=== PATIENT | female | born 1980 | race Caucasian/White ===

== ENCOUNTER 2016-11-28 15:14 | Emergency (ER) | payer MEDICAID ==
[2016-11-28 16:44] VITALS: BP 160/117
[2016-11-28] MEDS ORDERED: Lidocaine 2% Viscous Solution 15 ML Cup PO ONE (17:52)
--- NOTE | 2016-11-28 17:58 | EDM.PDOC ---
ED HPI ENT - General Chief Complaint: ENT Problem Stated Complaint: TOOTH CRACKED WITH PAIN Time Seen by Provider: 11/28/16 17:50 Source of Information: Reports: Patient History Limitations: Reports: No limitations - History of Present Illness INITIAL COMMENTS - FREE TEXT/NARRATIVE: This 36 yo female patient reports to the ED with a 2 day history of right lower posterior dental pain due to cracked teeth. The patient has not been seen by a dentist for these symptoms. Symptom Onset Date: 11/27/16 Timing/Duration: Reports: Constant, Getting worse Severity: severe Location: Reports: mouth Quality: Reports: Ache, Sharp Improves with: Reports: None Worsens with: Reports: Breathing, Cold therapy, Eating Associated Symptoms: Reports: no other symptoms - Related Data Allergies/ADRs: Allergies Allergy/AdvReac Type Severity Reaction Status Date / Time Penicillins Allergy Swelling Verified 06/29/16 12:57 Home Meds: Home Meds ALPRAZolam [Xanax] 0.5 mg PO QID PRN 12/07/13 [History] Lisinopril [Zestril] 20 mg PO BID 12/07/13 [History] Loperamide [Imodium] 2 mg PO TID PRN 12/07/13 [History] Multivitamin [Multi-Vitamin Daily] 1 tab PO DAILY 12/07/13 [History] QUEtiapine [SEROquel] 400 mg PO BEDTIME 12/07/13 [History] Ibuprofen 400 mg PO ASDIRECTED PRN 06/29/16 [History] traMADol [Ultram] 1 tab PO TID PRN 11/28/16 [History] Past Medical History HEENT 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: None Cardiovascular 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: Hypertension Respiratory 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: None Gastrointestinal 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: None Genitourinary 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: None 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 Neurological 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: None Psychiatric 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: Anxiety, Bipolar, Depression Endocrine/Metabolic 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: None Hematologic 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: None Immunologic 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: None Oncologic (Cancer) 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: None Dermatologic 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: None - Infectious Disease History Infectious Disease 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: Chicken pox - Past Surgical History Head Surgeries/Procedures: Reports: None Musculoskeletal Surgical 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: Other (see below) Other Musculoskeletal Surgeries/Procedures:: knee surgury Social & Family History - Tobacco Use Smoking Status *Q: Current Every Day Smoker Years of Tobacco use: 15 Packs/Tins Daily: 1 Used Tobacco, but Quit: No Second Hand Smoke Exposure: No - Caffeine Use Caffeine Use: Reports: Coffee, Soda - Alcohol Use Days Per Week of Alcohol Use: 0 - Recreational Drug Use Recreational Drug Use: No Drug Use in Last 12 Months: No - Living Situation & Occupation Living situation: Reports: with family ED ROS ENT - Review of Systems Review Of Systems: ROS reveals no pertinent complaints other than HPI. ED EXAM, ENT - Physical Exam Exam: See Below Exam Limited By: No limitations General Appearance: alert, WD/WN, moderate distress Eye Exam: bilateral eye: EOMI, normal inspection, PERRL Ears: normal external exam, normal canal, hearing grossly normal, normal TMs Nose: normal inspection, normal mucousa, no blood Mouth/Throat: Dental pain, Dental tenderness, Dental trauma (right lower posterior) Head: atraumatic, normocephalic Neck: normal inspection, supple, non-tender, full range of motion Respiratory/Chest: no respiratory distress, lungs clear, normal breath sounds, no accessory muscle use, chest non-tender Cardiovascular: normal peripheral pulses, regular rate, rhythm, no edema, no gallop, no JVD, no murmur, no rub GI/Abdominal: normal bowel sounds, soft, non tender, no organomegaly (Female) Exam: Deferred Rectal (Female) Exam: Deferred Extremities: normal inspection, normal range of motion Neurological: alert, oriented, CN II-XII intact, normal cognition, normal gait, no motor/sensory deficits Psychiatric: depressed mood, flat affect Skin: Warm, Dry, Intact, Normal color, No rash Lymphatic: no adenopathy Course - Vital Signs Last Recorded V/S: Last Vital Signs Temp 36.2 C 11/28/16 16:35 Pulse 98 11/28/16 16:35 Resp 16 11/28/16 16:35 BP 160/117 H 11/28/16 16:35 Pulse Ox 98 11/28/16 16:35 - Orders/Labs/Meds Meds: Medications Discontinued Medications Generic Name Dose Route Start Last Admin Trade Name Freq PRN Reason Stop Dose Admin Lidocaine HCl 15 ml 11/28/16 17:52 Xylocaine 2% Viscous PO 11/28/16 17:53 ONETIME ONE Departure - Departure Time of Disposition: 18:00 Disposition: Home, Self-Care 01 Condition: fair Clinical Impression: Dental caries, Pain, dental Instructions: Dental Abscess, [id number], Tooth Injuries, [id number] Forms: ED Department Discharge Care Plan Goals: The patient was advised of the examination results during the visit. The patient was given some Viscous Lidocaine 2% while in the ED. The patient was discharged with a script for Viscous Lidocaine 2% #100 mL to use 5 ml on a cotton swab every 6 hours and Clindamycin (300 mg) to take 1 by mouth 3 times per day for 10 days. The patient should follow-up with a dentist for continued evaluation and further management.
== END 2016-11-28 18:12 | disposition home or self-care (01) ==
LOC: DL.ED 15:14
DX: K02.9 Dental caries, unspecified (principal); I10 Essential (primary) hypertension; F41.9 Anxiety disorder, unspecified; F32.9 Major depressive disorder, single episode, unspecified; F17.210 Nicotine dependence, cigarettes, uncomplicated; Z79.899 Other long term (current) drug therapy; Z88.0 Allergy status to penicillin
CPT/HCPCS: 99282; A9270

== ENCOUNTER 2017-06-01 19:00 | Emergency (ER) | payer MEDICAID ==
[2017-06-01 19:14] VITALS: BP 164/110
--- NOTE | 2017-06-01 20:02 | EDM.PDOC ---
ED HPI GENERAL MEDICAL PROBLEM - General Chief Complaint: Genitourinary Problem Stated Complaint: [id number] LOWER BACK PAIN PRESSURE GOING TO BATHROOM Time Seen by Provider: 06/01/17 19:30 Source of Information: Reports: Patient History Limitations: Reports: No Limitations - History of Present Illness INITIAL COMMENTS - FREE TEXT/NARRATIVE: c/o low mid back pain for one week, increased urinary frequency and felling like vaginal pressure with voiding. Chills, no known fever. LMP just completed. "Normal cycle " Hx tubal. via . No concern for STD. Onset: Gradual Lower Back Pain Score (Numeric/FACES): 8 - Related Data Allergies Allergy/AdvReac Type Severity Reaction Status Date / Time Penicillins Allergy Swelling Verified 06/01/17 19:15 Home Meds: Home Meds ALPRAZolam [Xanax] 0.5 mg PO BID PRN 12/07/13 [History] Lisinopril [Zestril] 20 mg PO BID 12/07/13 [History] Loperamide [Imodium] 2 mg PO TID PRN 12/07/13 [History] Multivitamin [Multi-Vitamin Daily] 1 tab PO DAILY 12/07/13 [History] QUEtiapine [SEROquel] 400 mg PO BEDTIME 12/07/13 [History] Ibuprofen 400 mg PO ASDIRECTED PRN 06/29/16 [History] traMADol [Ultram] 1 tab PO TID PRN 11/28/16 [History] Past Medical History HEENT 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: None Cardiovascular 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: Hypertension Respiratory 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: None Gastrointestinal 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: None Genitourinary 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: None 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 Neurological 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: None Psychiatric 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: Anxiety, Bipolar, Depression Endocrine/Metabolic 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: None Hematologic 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: None Immunologic 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: None Oncologic (Cancer) 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: None Dermatologic 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: None - Infectious Disease History Infectious Disease 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: Chicken Pox - Past Surgical History Head Surgeries/Procedures: Reports: None Social & Family History - Tobacco Use Smoking Status *Q: Current Every Day Smoker Years of Tobacco use: 20 Packs/Tins Daily: 0.5 Used Tobacco, but Quit: No Second Hand Smoke Exposure: Yes - Caffeine Use Caffeine Use: Reports: Coffee, Soda - Alcohol Use Days Per Week of Alcohol Use: 0 - Recreational Drug Use Recreational Drug Use: No Drug Use in Last 12 Months: No - Living Situation & Occupation Living situation: Reports: with Family ED ROS GENERAL - Review of Systems Review Of Systems: ROS reveals no pertinent complaints other than HPI. ED EXAM, RENAL/ - Physical Exam Exam: See Below Exam Limited By: No Limitations General Appearance: Alert, Mild Distress Eye Exam: Bilateral Eye: Abnormal EOM, EOMI Ears: Normal External Exam Nose: Normal Inspection Throat/Mouth: Normal Inspection Head: Atraumatic, Normocephalic Respiratory/Chest: No Respiratory Distress, Lungs Clear, Normal Breath Sounds Cardiovascular: Regular Rate, Rhythm GI/Abdominal: Normal Bowel Sounds, Soft, Tender (suprapubic) (Female) Exam: Normal External Exam, Normal Speculum Exam, Other (mild tenderness bimanual greater right adenaxal. No prolapse noted. ). No: Vaginal Bleeding, Vaginal Discharge, Vaginal Lesions Back Exam: Normal Inspection, Full Range of Motion Extremities: Normal Inspection, Normal Range of Motion Neurological: Alert, Oriented Psychiatric: Normal Mood Skin Exam: Warm, Dry, Intact, Normal Color Course - Vital Signs Last Recorded V/S: Last Vital Signs Temp 98.1 F 06/01/17 19:10 Pulse 88 06/01/17 19:10 Resp 18 06/01/17 19:10 BP 164/110 H 06/01/17 19:10 Pulse Ox 100 06/01/17 19:10 - Orders/Labs/Meds Labs: Laboratory Tests 06/01/17 06/01/17 06/01/17 Range/Units 19:20 20:26 20:26 WBC 7.8 (5.0-10.0) 10^3/uL RBC 4.70 (4.2-5.4) 10^6/uL Hgb 14.5 (12.0-16.0) g/dL Hct 43.6 (37.0-47.0) % MCV 92.8 (80-100) fL MCH 30.9 (27.0-34.0) pg MCHC 33.3 (33.0-35.0) g/dL Plt Count 204 (150-450) 10^3/uL Neut % (Auto) 71.4 (42.2-75.2) % Lymph % (Auto) 21.5 (20.5-50.1) % [place] % (Auto) 6.6 (2-8) % Eos % (Auto) 0.4 L (1.0-3.0) % Baso % (Auto) 0.1 (0.0-1.0) % Sodium 141 (135-145) mmol/L Potassium 4.0 (3.6-5.0) mmol/L Chloride 102 (101-111) mmol/L Carbon Dioxide 26.0 (21.0-31.0) mmol/L Anion Gap 17.0 BUN 9 (7-18) mg/dL Creatinine 0.8 (0.6-1.3) mg/dL Est Cr Clr Drug Dosing 109.70 mL/min Estimated GFR (MDRD) > 60 BUN/Creatinine Ratio 11.25 Glucose 100 (74-105) mg/dL Calcium 9.8 (8.4-10.2) mg/dl Total Bilirubin 0.6 (0.2-1.0) mg/dL AST 30 (10-42) IU/L ALT 37 (10-60) IU/L Alkaline Phosphatase 75 (42-121) IU/L Total Protein 8.0 (6.7-8.2) g/dl Albumin 4.4 (3.2-5.5) g/dl Globulin 3.6 Albumin/Globulin Ratio 1.22 Urine Color Yellow (YELLOW) Urine Appearance Cloudy (CLEAR) Urine pH 6.0 (5.0-9.0) Ur Specific [place] 1.015 (1.005-1.030) Urine Protein Negative (NEGATIVE) Urine Glucose (UA) Negative (NEGATIVE) Urine Ketones Negative (NEGATIVE) Urine Occult Blood Trace-intact H (NEGATIVE) Urine Nitrite Negative (NEGATIVE) Urine Bilirubin Negative (NEGATIVE) Urine Urobilinogen 0.2 (0.2-1.0) mg/dL Ur Leukocyte Esterase Negative (NEGATIVE) Urine RBC 5-10 H /HPF Urine WBC 0-5 (0-5/HPF) /HPF Ur Epithelial Cells Few /HPF Urine Bacteria Few (0-FEW/HPF) /HPF Urine Mucus Few H /LPF Meds: Medications Discontinued Medications Generic Name Dose Route Start Last Admin Trade Name Freq PRN Reason Stop Dose Admin Ketorolac Tromethamine 30 mg 06/01/17 21:01 06/01/17 21:06 Toradol IM 06/01/17 21:02 30 mg ONETIME ONE Administration Orphenadrine Citrate 60 mg 06/01/17 21:02 06/01/17 21:07 Norflex IM 06/01/17 21:03 60 mg ONETIME ONE Administration Departure - Departure Time of Disposition: 21:49 Disposition: Home, Self-Care 01 Condition: Fair Clinical Impression: Pelvic pressure in female Back pain Qualifiers: Back pain location: low back pain Chronicity: unspecified Back pain laterality : midline Sciatica presence: without sciatica Qualified Code(s): M54.5 - Low back pain - Discharge Information Instructions: Pelvic Pain, Female, [id number] Forms: ED Department Discharge Additional Instructions: follow up in clinic tramadol as previously ordered, may take withone acetaminophen 325mg rest
[2017-06-01 20:52] LABS: CHLORIDE,CL 102 mmol/L (101-111); SODIUM,NA 141 mmol/L (135-145)
[2017-06-01] MEDS ORDERED: Ketorolac 30 MG/ML SDV IM ONE (21:01)
== END 2017-06-01 22:00 | disposition home or self-care (01) ==
LOC: DL.ED 19:00
DX: M54.5 Low back pain (principal); R10.2 Pelvic and perineal pain; I10 Essential (primary) hypertension; F17.210 Nicotine dependence, cigarettes, uncomplicated; Z88.0 Allergy status to penicillin
CPT/HCPCS: 36415; 80053; 81001; 85025; 87210; 96372; 99283; J1885; J2360

== ENCOUNTER 2017-08-24 16:09 | Emergency (ER) | payer MEDICAID ==
[2017-08-24 16:27] VITALS: BP 184/115
--- NOTE | 2017-08-24 17:01 | EDM.PDOC ---
ED HPI GENERAL MEDICAL PROBLEM - General Chief Complaint: Abdominal Pain Stated Complaint: POST SURG, PAIN Time Seen by Provider: 08/24/17 16:50 Source of Information: Reports: Patient History Limitations: Reports: No Limitations - History of Present Illness INITIAL COMMENTS - FREE TEXT/NARRATIVE: This 37 yo female patient reports to the ED with lower abdominal pain and vaginal discharge (blood and whitish discharge). The patient reports that she had a partial 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 in the end of July and has been experiencing increased discomfort since that time. The patient reports she attempted to speak to the surgeon (Dr. Ramírez), but he is out of the office. The patient reports she attempted to get an appointment in the [facility], but spoke with numerous nurses and was not able to get into the clinic. The patient rates her current pain at a 7/10 and describes her pain as pressure in her lower abdomen. The patient reports she has had regular bowel movements. Duration: Week(s):, Constant, Getting Worse Location: Reports: Abdomen Quality: Reports: Ache, Pressure Severity: Severe Improves with: Reports: None Worsens with: Reports: None Associated Symptoms: Reports: Other (vaginal discharge) Pelvic Pain Score (Numeric/FACES): 7 - Related Data Allergies Allergy/AdvReac Type Severity Reaction Status Date / Time metronidazole Allergy Cannot Verified 08/24/17 16:53 Remember Penicillins Allergy Swelling Verified 08/24/17 16:48 Home Meds: Home Meds ALPRAZolam [Xanax] 0.5 mg PO BID PRN 12/07/13 [History] Lisinopril [Zestril] 20 mg PO BID 12/07/13 [History] Loperamide [Imodium] 2 mg PO TID PRN 12/07/13 [History] Multivitamin [Multi-Vitamin Daily] 1 tab PO DAILY 12/07/13 [History] QUEtiapine [SEROquel] 400 mg PO BEDTIME 12/07/13 [History] Ibuprofen 400 mg PO ASDIRECTED PRN 06/29/16 [History] traMADol [Ultram] 1 tab PO TID PRN 11/28/16 [History] Past Medical History HEENT 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: None Cardiovascular 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: Hypertension Respiratory 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: None Gastrointestinal 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: None Genitourinary 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: None 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 Other OB/BYN History: 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 Neurological 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: None Psychiatric 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: Anxiety, Bipolar, Depression Endocrine/Metabolic 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: None Hematologic 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: None Immunologic 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: None Oncologic (Cancer) 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: None Dermatologic 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: None - Infectious Disease History Infectious Disease 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: Chicken Pox - Past Surgical History Head Surgeries/Procedures: Reports: None GI Surgical 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: Cholecystectomy Musculoskeletal Surgical 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: Other (See Below) Social & Family History - Family History Family Medical History: Noncontributory - Tobacco Use Smoking Status *Q: Current Every Day Smoker Years of Tobacco use: 19 Packs/Tins Daily: 1 Used Tobacco, but Quit: No Second Hand Smoke Exposure: Yes - Caffeine Use Caffeine Use: Reports: Coffee - Alcohol Use Days Per Week of Alcohol Use: 0 - Recreational Drug Use Recreational Drug Use: No Drug Use in Last 12 Months: No - Living Situation & Occupation Living situation: Reports: with Family ED ROS GENERAL - Review of Systems Review Of Systems: ROS reveals no pertinent complaints other than HPI. ED EXAM, GI/ABD - Physical Exam Exam: See Below Exam Limited By: No Limitations General Appearance: Alert, WD/WN, Moderate Distress Eyes: Bilateral: Normal Appearance, EOMI Ears: Normal External Exam, Normal Canal, Hearing Grossly Normal, Normal TMs Nose: Normal Inspection, Normal Mucosa, No Blood Throat/Mouth: Normal Inspection, Normal Lips, Normal Teeth, Normal Gums, Normal Oropharynx, Normal Voice, No Airway Compromise Head: Atraumatic, Normocephalic Neck: Normal Inspection, Supple, Non-Tender, Full Range of Motion Respiratory/Chest: No Respiratory Distress, Lungs Clear, Normal Breath Sounds, No Accessory Muscle Use, Chest Non-Tender Cardiovascular: Normal Peripheral Pulses, Regular Rate, Rhythm, No Edema, No Gallop, No JVD, No Murmur, No Rub GI/Abdominal Exam: Normal Bowel Sounds, No Abnormal Bruit, No Mass, Pelvis Stable, Distended, Tender (diffuse tenderness with increased tenderness over the lower abdomen) (Female) Exam: Normal External Exam, Adnexal Tenderness, Cervical Discharge ( mild, blood tinged, whitish discharge), Cervix Motion Tenderness (generalized tenderness (post 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)), Vaginal Discharge Rectal (Female) Exam: Deferred Back Exam: Normal Inspection, Full Range of Motion, NT Extremities: Normal Inspection, Normal Range of Motion, Non-Tender, Normal Capillary Refill, No Pedal Edema Neurological: Alert, Oriented, CN II-XII Intact, Normal Cognition, Normal Gait, Normal Reflexes, No Motor/Sensory Deficits Psychiatric: Normal Affect, Normal Mood Skin Exam: Warm, Dry, Intact, Normal Color, No Rash Lymphatic: No Adenopathy Course - Vital Signs Last Recorded V/S: Last Vital Signs Temp 36.7 C 08/24/17 16:26 Pulse 94 08/24/17 16:26 Resp 20 08/24/17 16:26 BP 184/115 H 08/24/17 16:26 Pulse Ox 100 08/24/17 16:26 - Orders/Labs/Meds Orders: Active Orders 24 hr Category Date Time Status CHLAMYDIA AND GONORRHEA BY [facility] Urgent Lab 08/24/17 18:26 Received Labs: Laboratory Tests 08/24/17 08/24/17 08/24/17 Range/Units 16:15 17:00 17:00 WBC 5.4 (5.0-10.0) 10^3/uL RBC 4.23 (4.2-5.4) 10^6/uL Hgb 12.7 D (12.0-16.0) g/dL Hct 38.6 (37.0-47.0) % MCV 91.3 (80-100) fL MCH 30.0 (27.0-34.0) pg MCHC 32.9 L (33.0-35.0) g/dL Plt Count 204 (150-450) 10^3/uL Neut % (Auto) 52.1 (42.2-75.2) % Lymph % (Auto) 35.2 (20.5-50.1) % [place] % (Auto) 11.0 H (2-8) % Eos % (Auto) 1.5 (1.0-3.0) % Baso % (Auto) 0.2 (0.0-1.0) % Sodium 138 (135-145) mmol/L Potassium 3.8 (3.6-5.0) mmol/L Chloride 105 (101-111) mmol/L Carbon Dioxide 26.0 (21.0-31.0) mmol/L Anion Gap 10.8 BUN 15 (7-18) mg/dL Creatinine 0.9 (0.6-1.3) mg/dL Est Cr Clr Drug Dosing 97.51 mL/min Estimated GFR (MDRD) > 60 BUN/Creatinine Ratio 16.66 Glucose 93 (74-105) mg/dL Calcium 9.1 (8.4-10.2) mg/dl Total Bilirubin 0.2 (0.2-1.0) mg/dL AST 28 (10-42) IU/L ALT 33 (10-60) IU/L Alkaline Phosphatase 70 (42-121) IU/L Total Protein 7.1 (6.7-8.2) g/dl Albumin 3.7 (3.2-5.5) g/dl Globulin 3.4 Albumin/Globulin Ratio 1.09 Amylase 51 (28-100) U/L Lipase 27 (22-51) U/L Urine Color Yellow (YELLOW) Urine Appearance Cloudy (CLEAR) Urine pH 7.0 (5.0-9.0) Ur Specific [place] 1.025 (1.005-1.030) Urine Protein Negative (NEGATIVE) Urine Glucose (UA) Negative (NEGATIVE) Urine Ketones Negative (NEGATIVE) Urine Occult Blood Moderate H (NEGATIVE) Urine Nitrite Negative (NEGATIVE) Urine Bilirubin Negative (NEGATIVE) Urine Urobilinogen 0.2 (0.2-1.0) mg/dL Ur Leukocyte Esterase Small H (NEGATIVE) Urine RBC 0-5 /HPF Urine WBC 0-5 (0-5/HPF) /HPF Ur Epithelial Cells Few /HPF Urine Bacteria Few (0-FEW/HPF) /HPF Urine Mucus Few H /LPF Meds: Medications Discontinued Medications Generic Name Dose Route Start Last Admin Trade Name Freq PRN Reason Stop Dose Admin Iopamidol 100 ml 08/24/17 17:30 08/24/17 18:04 Isovue-300 (61%) IVPUSH 08/24/17 17:31 100 ml ONETIME ONE Administration Departure - Departure Time of Disposition: 18:49 Disposition: Home, Self-Care 01 Condition: Fair Clinical Impression: Bacterial vaginitis - Discharge Information Instructions: Bacterial Vaginosis, [id number] Forms: ED Department Discharge Care Plan Goals: The patient was advised of the examination, lab and CT results during the visit. The patient was discharged with a script for Clindamycin (300 mg) #14 to take 1 by mouth 2 times per day for 7 days. The patient should follow-up with her primary care facility in about 1 week. If the patient has any additional symptoms or concerns, the patient should follow-up with her primary care facility or return to the ED. - My Orders Last 24 Hours: My Active Orders 08/24/17 18:26 CHLAMYDIA AND GONORRHEA [facility] Urgent - Assessment/Plan Last 24 Hours: My Active Orders 08/24/17 18:26 [facility] Urgent
[2017-08-24 17:23] LABS: CHLORIDE,CL 105 mmol/L (101-111); SODIUM,NA 138 mmol/L (135-145)
[2017-08-24] MEDS ORDERED: Iopamidol 612 MG/ML 100 ML Bottle IVPUSH ONE (17:30)
== END 2017-08-24 18:53 | disposition home or self-care (01) ==
LOC: DL.ED 16:09
DX: N76.0 Acute vaginitis (principal); K59.00 Constipation, unspecified; I10 Essential (primary) hypertension; F31.9 Bipolar disorder, unspecified; F17.210 Nicotine dependence, cigarettes, uncomplicated; Z79.899 Other long term (current) drug therapy; Z88.0 Allergy status to penicillin; Z88.1 Allergy status to other antibiotic agents; Z90.710 Acquired absence of both cervix and uterus
CPT/HCPCS: 36415; 74177; 80053; 81001; 82150; 83690; 85025; 87210; 87491; 87591; 99284; Q9967

== ENCOUNTER 2017-10-30 21:29 | Emergency (ER) | payer MEDICAID ==
[2017-10-30] MEDS ORDERED: Sodium Chloride 0.9% 10 ML Syringe FLUSH PRN (21:44)
[2017-10-30 21:56] VITALS: BP 162/113
[2017-10-30 22:13] LABS: CHLORIDE,CL 103 mmol/L (101-111); SODIUM,NA 136 mmol/L (135-145)
[2017-10-30] MEDS ORDERED: Sodium Chloride 0.9% 1,000 ML IV ONE (22:24)
[2017-10-30] MEDS ORDERED: Morphine 2 MG/ML Syringe IVPUSH ONE (22:39)
[2017-10-30] MEDS ORDERED: Ondansetron 4 MG/2 ML SDV IV ONE (22:39)
--- NOTE | 2017-10-30 23:02 | EDM.PDOC ---
ED HPI GENERAL MEDICAL PROBLEM - General Chief Complaint: Abdominal Pain Stated Complaint: abdominal pain [id number] Time Seen by Provider: 10/30/17 21:52 Source of Information: Reports: Patient, RN, RN Notes Reviewed History Limitations: Reports: No Limitations - History of Present Illness INITIAL COMMENTS - FREE TEXT/NARRATIVE: Pt presents to the ER with c/o right lower quadrant pain that radiates to the left lower quadrant. She states the pain began at 0130 Thursday morning. She states the pain has been constant and getting worse. She states she had severe pain with intercourse last evening. Pt states she has had a low grade fever, but unsure of what the temperature was, and chills. Denies N/V/D. Pt states she had a 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 approx. 2 months ago, still has her appendix, but not her gallbladder. Onset: Sudden Onset Date: 10/29/17 Onset Time: 01:30 Duration: Constant Location: Reports: Abdomen Quality: Reports: Sharp, Stabbing Severity: Moderate Improves with: Reports: None Worsens with: Reports: None Associated Symptoms: Reports: No Other Symptoms Treatments CULINARY INTERN: Reports: NSAIDS Right Lower Abdomen Pain Score (Numeric/FACES): 8 - Related Data Allergies Allergy/AdvReac Type Severity Reaction Status Date / Time metronidazole Allergy Cannot Verified 10/30/17 21:39 Remember Penicillins Allergy Swelling Verified 10/30/17 21:39 Home Meds: Home Meds ALPRAZolam [Xanax] 0.5 mg PO BID PRN 12/07/13 [History] Lisinopril [Zestril] 20 mg PO BID 12/07/13 [History] Loperamide [Imodium] 2 mg PO TID PRN 12/07/13 [History] Multivitamin [Multi-Vitamin Daily] 1 tab PO DAILY 12/07/13 [History] QUEtiapine [SEROquel] 400 mg PO BEDTIME 12/07/13 [History] Ibuprofen 400 mg PO ASDIRECTED PRN 06/29/16 [History] traMADol [Ultram] 1 tab PO TID PRN 11/28/16 [History] Past Medical History HEENT 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: None Cardiovascular 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: Hypertension Respiratory 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: None Gastrointestinal 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: None Genitourinary 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: None 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: 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 Other OB/BYN History: 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 Neurological 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: None Psychiatric 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: Anxiety, Bipolar, Depression Endocrine/Metabolic 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: None Hematologic 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: None Immunologic 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: None Oncologic (Cancer) 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: None Dermatologic 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: None - Infectious Disease History Infectious Disease 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: Chicken Pox - Past Surgical History Head Surgeries/Procedures: Reports: None GI Surgical 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: Cholecystectomy Musculoskeletal Surgical 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: Other (See Below) Social & Family History - Family History Family Medical History: Noncontributory - Tobacco Use Smoking Status *Q: Current Every Day Smoker Years of Tobacco use: 21 Packs/Tins Daily: 0.5 Used Tobacco, but Quit: No Second Hand Smoke Exposure: Yes - Caffeine Use Caffeine Use: Reports: Coffee, Soda - Alcohol Use Days Per Week of Alcohol Use: 0 - Recreational Drug Use Recreational Drug Use: No Drug Use in Last 12 Months: No - Living Situation & Occupation Living situation: Reports: with Family ED ROS GENERAL - Review of Systems Review Of Systems: ROS reveals no pertinent complaints other than HPI. ED EXAM, GI/ABD - Physical Exam Exam: See Below Exam Limited By: No Limitations General Appearance: Alert, WD/WN Eyes: Bilateral: Normal Appearance Ears: Normal External Exam, Hearing Grossly Normal Nose: Normal Inspection Throat/Mouth: Normal Inspection, Normal Voice, No Airway Compromise Head: Atraumatic, Normocephalic Neck: Normal Inspection, Supple, Non-Tender, Full Range of Motion Respiratory/Chest: No Respiratory Distress, Lungs Clear, Normal Breath Sounds, No Accessory Muscle Use, Chest Non-Tender Cardiovascular: Normal Peripheral Pulses, Regular Rate, Rhythm, No Edema, No Gallop, No JVD, No Murmur, No Rub GI/Abdominal Exam: Normal Bowel Sounds, Soft, No Organomegaly, No Distention, Tender (right and left lower quadrants) (Female) Exam: Deferred Rectal (Female) Exam: Deferred Back Exam: Normal Inspection, Full Range of Motion Extremities: Normal Inspection, Normal Range of Motion, Non-Tender, Normal Capillary Refill, No Pedal Edema Neurological: Alert, Oriented, CN II-XII Intact, Normal Cognition, Normal Gait, Normal Reflexes, No Motor/Sensory Deficits Psychiatric: Normal Affect, Normal Mood Skin Exam: Warm, Dry, Intact, Normal Color, No Rash Lymphatic: No Adenopathy Course - Vital Signs Last Recorded V/S: Last Vital Signs Temp 100.1 F 10/30/17 21:54 Pulse 114 H 10/30/17 21:54 Resp 20 10/30/17 21:54 BP 162/113 H 10/30/17 21:54 Pulse Ox 100 10/30/17 21:54 - Orders/Labs/Meds Orders: Active Orders 24 hr Category Date Time Status Peripheral IV Care [RC] . DIRECTED Care 10/30/17 21:44 Active CULTURE BLOOD [BC] Stat Lab 10/30/17 21:50 Received Blood Culture x2 Reflex Set [OM.PC] Stat Oth 10/30/17 21:44 Ordered Peripheral IV Insertion Adult [OM.PC] Stat Oth 10/30/17 21:44 Ordered Labs: Laboratory Tests 10/30/17 10/30/17 10/30/17 Range/Units 21:50 21:50 21:50 WBC 8.6 (5.0-10.0) 10^3/uL RBC 4.64 (4.2-5.4) 10^6/uL Hgb 14.2 D (12.0-16.0) g/dL Hct 41.9 (37.0-47.0) % MCV 90.3 (80-100) fL MCH 30.6 (27.0-34.0) pg MCHC 33.9 (33.0-35.0) g/dL Plt Count 171 (150-450) 10^3/uL Neut % (Auto) 70.3 (42.2-75.2) % Lymph % (Auto) 19.7 L (20.5-50.1) % Isabella % (Auto) 9.3 H (2-8) % Eos % (Auto) 0.6 L (1.0-3.0) % Baso % (Auto) 0.1 (0.0-1.0) % Sodium 136 (135-145) mmol/L Potassium 3.0 L (3.6-5.0) mmol/L Chloride 103 (101-111) mmol/L Carbon Dioxide 23.0 (21.0-31.0) mmol/L Anion Gap 13.0 BUN 10 (7-18) mg/dL Creatinine 0.7 (0.6-1.3) mg/dL Est Cr Clr Drug Dosing 125.38 mL/min Estimated GFR (MDRD) > 60 BUN/Creatinine Ratio 14.28 Glucose 97 (74-105) mg/dL Lactic Acid 0.8 (0.5-2.2) mmol/L Calcium 9.0 (8.4-10.2) mg/dl Total Bilirubin 1.1 H (0.2-1.0) mg/dL AST 26 (10-42) IU/L ALT 37 (10-60) IU/L Alkaline Phosphatase 71 (42-121) IU/L Total Protein 8.1 (6.7-8.2) g/dl Albumin 4.2 (3.2-5.5) g/dl Globulin 3.9 Albumin/Globulin Ratio 1.08 Urine Color (YELLOW) Urine Appearance (CLEAR) Urine pH (5.0-9.0) Ur Specific [place] (1.005-1.030) Urine Protein (NEGATIVE) Urine Glucose (UA) (NEGATIVE) Urine Ketones (NEGATIVE) Urine Occult Blood (NEGATIVE) Urine Nitrite (NEGATIVE) Urine Bilirubin (NEGATIVE) Urine Urobilinogen (0.2-1.0) mg/dL Ur Leukocyte Esterase (NEGATIVE) Urine RBC /HPF Urine WBC (0-5/HPF) /HPF Ur Epithelial Cells /HPF Urine Bacteria (0-FEW/HPF) /HPF Urine Mucus /LPF Urine Other Urine Yeast (0/HPF) /HPF Urine Opiates Screen (NEGATIVE) Ur Oxycodone Screen (NEGATIVE) Urine Methadone Screen (NEGATIVE) Ur Barbiturates Screen (NEGATIVE) U Tricyclic Antidepress (NEGATIVE) Ur Phencyclidine Scrn (NEGATIVE) Ur Amphetamine Screen (NEGATIVE) U Methamphetamines Scrn (NEGATIVE) Urine MDMA Screen (NEGATIVE) U Benzodiazepines Scrn (NEGATIVE) Urine Cocaine Screen (NEGATIVE) U Marijuana (THC) Screen (NEGATIVE) 10/30/17 10/30/17 Range/Units 22:56 22:56 WBC (5.0-10.0) 10^3/uL RBC (4.2-5.4) 10^6/uL Hgb (12.0-16.0) g/dL Hct (37.0-47.0) % MCV (80-100) fL MCH (27.0-34.0) pg MCHC (33.0-35.0) g/dL Plt Count (150-450) 10^3/uL Neut % (Auto) (42.2-75.2) % Lymph % (Auto) (20.5-50.1) % Isabella % (Auto) (2-8) % Eos % (Auto) (1.0-3.0) % Baso % (Auto) (0.0-1.0) % Sodium (135-145) mmol/L Potassium (3.6-5.0) mmol/L Chloride (101-111) mmol/L Carbon Dioxide (21.0-31.0) mmol/L Anion Gap BUN (7-18) mg/dL Creatinine (0.6-1.3) mg/dL Est Cr Clr Drug Dosing mL/min Estimated GFR (MDRD) BUN/Creatinine Ratio Glucose (74-105) mg/dL Lactic Acid (0.5-2.2) mmol/L Calcium (8.4-10.2) mg/dl Total Bilirubin (0.2-1.0) mg/dL AST (10-42) IU/L ALT (10-60) IU/L Alkaline Phosphatase (42-121) IU/L Total Protein (6.7-8.2) g/dl Albumin (3.2-5.5) g/dl Globulin Albumin/Globulin Ratio Urine Color Dark yellow (YELLOW) Urine Appearance Slightly cloudy (CLEAR) Urine pH 6.0 (5.0-9.0) Ur Specific [place] 1.020 (1.005-1.030) Urine Protein Trace H (NEGATIVE) Urine Glucose (UA) Negative (NEGATIVE) Urine Ketones 80 H (NEGATIVE) Urine Occult Blood Trace-lysed H (NEGATIVE) Urine Nitrite Negative (NEGATIVE) Urine Bilirubin Small H (NEGATIVE) Urine Urobilinogen 0.2 (0.2-1.0) mg/dL Ur Leukocyte Esterase Negative (NEGATIVE) Urine RBC 5-10 H /HPF Urine WBC 0-5 (0-5/HPF) /HPF Ur Epithelial Cells Moderate H /HPF Urine Bacteria Moderate H (0-FEW/HPF) /HPF Urine Mucus Many H /LPF Urine Other See note Urine Yeast Few H (0/HPF) /HPF Urine Opiates Screen Positive H (NEGATIVE) Ur Oxycodone Screen Positive H (NEGATIVE) Urine Methadone Screen Negative (NEGATIVE) Ur Barbiturates Screen Negative (NEGATIVE) U Tricyclic Antidepress Negative (NEGATIVE) Ur Phencyclidine Scrn Negative (NEGATIVE) Ur Amphetamine Screen Positive H (NEGATIVE) U Methamphetamines Scrn Positive H (NEGATIVE) Urine MDMA Screen Negative (NEGATIVE) U Benzodiazepines Scrn Negative (NEGATIVE) Urine Cocaine Screen Negative (NEGATIVE) U Marijuana (THC) Screen Negative (NEGATIVE) Meds: Medications Discontinued Medications Generic Name Dose Route Start Last Admin Trade Name Freq PRN Reason Stop Dose Admin Clindamycin HCl 300 mg 10/30/17 23:34 10/30/17 23:51 Cleocin PO 10/30/17 23:35 300 mg ONETIME ONE Administration Hydromorphone HCl 1 mg 10/31/17 01:23 10/31/17 01:27 Dilaudid IVPUSH 10/31/17 01:24 1 mg ONETIME ONE Administration Sodium Chloride 1,000 mls @ 999 mls/hr 10/30/17 22:24 10/30/17 22:32 Normal Saline IV 10/30/17 23:24 999 mls/hr .BOLUS ONE Administration Iopamidol 100 ml 10/31/17 00:01 10/31/17 00:30 Isovue-300 (61%) IVPUSH 10/31/17 00:02 100 ml ONETIME ONE Administration Lorazepam 1 mg 10/31/17 01:32 10/31/17 01:37 Ativan IVPUSH 10/31/17 01:33 1 mg ONETIME ONE Administration Morphine Sulfate 2 mg 10/30/17 22:39 10/30/17 22:50 Morphine IVPUSH 10/30/17 22:40 2 mg ONETIME ONE Administration Ondansetron HCl 4 mg 10/30/17 22:39 10/30/17 22:50 Zofran IV 10/30/17 22:40 4 mg ONETIME ONE Administration Sodium Chloride 10 ml 10/30/17 21:44 10/30/17 22:33 Saline Flush FLUSH 10 ml ASDIRECTED PRN Administration Keep Vein Open - Radiology Interpretation Free Text/Narrative:: Abdomen/Pelvis CT with contrast: IMPRESSION: 1. Status-post 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. New thick-walled 6.8 cm multicystic right adnexal/ ovarian lesion with diffuse wall enhancement and pelvic mild inflammatory changes and small free fluid. Diffuse thickening of the right broad ligament. The findings likely represent represent a tubo-ovarian abscess or a large hemorrhagic cysts but superimposed infection. Surgical consultation is recommended. 2. Diffuse segmental thickening of the rectosigmoid junction adjacent to the cystic right tubo-ovarian mass, suspicious for regional colitis. Followup is recommended after treatment to rule out the possibility of malignancy. 3. Right ovarian vein thrombosis. 4. Small bowel ileus in the pelvis. Colonic constipation. See Rad report Departure - Departure Time of Disposition: 23:35 Disposition: DC/Tfer to [facility] 02 Condition: Fair Clinical Impression: Bacterial vaginitis, Candidiasis, Lesion of ovary Abdominal pain Qualifiers: Abdominal location: lower abdomen, unspecified Qualified Code(s): R10.30 - Lower abdominal pain, unspecified - Discharge Information Referrals: Joao Crystal MD [Primary Care Provider] - Forms: ED Department Discharge, Interfacility Transfer EMTALA Additional Instructions: RX: Clindamycin, Fluconazole Drink plenty of fluids Follow up with your primary care facility next week Tylenol and/or ibuprofen as directed for pain/fever - My Orders Last 24 Hours: My Active Orders 10/30/17 21:44 Peripheral IV Care [RC] . DIRECTED Blood Culture x2 Reflex Set [OM.PC] Stat Peripheral IV Insertion Adult [OM.PC] Stat 10/30/17 21:50 CULTURE BLOOD [BC] Stat - Assessment/Plan Last 24 Hours: My Active Orders 10/30/17 21:44 Peripheral IV Care [RC] . DIRECTED Blood Culture x2 Reflex Set [OM.PC] Stat Peripheral IV Insertion Adult [OM.PC] Stat 10/30/17 21:50 CULTURE BLOOD [BC] Stat
[2017-10-30] MEDS ORDERED: Clindamycin HCl 150 MG Cap PO ONE (23:34)
[2017-10-31] MEDS ORDERED: Iopamidol 612 MG/ML 100 ML Bottle IVPUSH ONE (00:01)
[2017-10-31] MEDS ORDERED: HYDROmorphone 1 MG/ML Syringe IVPUSH ONE (01:23)
[2017-10-31] MEDS ORDERED: LORazepam 2 MG/ML Syringe IVPUSH ONE (01:32)
== END 2017-10-31 02:22 ==
LOC: DL.ED 21:29
DX: N76.0 Acute vaginitis (principal); B37.3 Candidiasis of vulva and vagina; N83.8 Other noninflammatory disorders of ovary, fallopian tube and broad ligament; K56.7 Ileus, unspecified; K59.00 Constipation, unspecified; I10 Essential (primary) hypertension; F31.9 Bipolar disorder, unspecified; F17.210 Nicotine dependence, cigarettes, uncomplicated; Z88.0 Allergy status to penicillin; Z88.1 Allergy status to other antibiotic agents
CPT/HCPCS: 36415; 74177; 80053; 80305; 81001; 83605; 85025; 87040; 96365; 96375; 99285; A9270; J1170; J2060; J2270; J2405; J7030; J7050; Q9967

== ENCOUNTER 2017-11-10 12:10 | Emergency (ER) | payer MEDICAID ==
[2017-11-10 14:53] LABS: CHLORIDE,CL 105 mmol/L (101-111); SODIUM,NA 140 mmol/L (135-145)
[2017-11-10] MEDS ORDERED: HYDROmorphone 1 MG/ML Syringe IVPUSH ONE ×2 (15:04→18:01)
[2017-11-10] MEDS ORDERED: Iopamidol 612 MG/ML 100 ML Bottle IVPUSH ONE (16:05)
--- NOTE | 2017-11-10 16:16 | US ---
Clinical history: 37-year-old female who presents emergency department with severe right pelvic pain. Patient has had a 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 and was reported on recent CT scan pelvis 31 October 2017 to have "t hick walled 6.8 cm multicystic right adnexal (ovarian ?) lesion, pelvic inflammatory changes and smal l fluid". Tubo-ovarian abscess? Hemorrhagic cyst? Reevaluate please this patient also reported to [facility] "right ovarian thrombosis and suspicion of regional colitis" end of October 2017 exam. Interpretation: 1. Surgically absent uterus. 2. Prominent right ovary (4.0 cm L x 2.6 cm W x 3.0 cm AP diameter) with typical small physiologic cy sts in the periphery and trace of fluid in the adjacent cul-de-sac. Cyst rupture? 3. Largest right ovarian cyst measures 9 x 17 mm. Note: No arterial blood flow demonstrated to this ovary (real-time exam by lab associate) and must cons ider the possibility of torsion. Clinical? Suspicious but repeat CT with contrast may be helpful and is suggested. 4. Left ovary not appreciated on today's exam. Surgically absent? 5. No extraovarian adnexal mass lesion (abscess, endometrioma, or neoplasm) identified. CONCLUSION: Suspicious blood flow dynamics solitary large ovary, RLQ. Torsion? Surgically absent uter us.
[2017-11-10] MEDS ORDERED: LORazepam 2 MG/ML Syringe IVPUSH ONE (17:11)
--- NOTE | 2017-11-10 17:34 | EDM.PDOC ---
ED HPI GENERAL MEDICAL PROBLEM - General Chief Complaint: Abdominal Pain Stated Complaint: [id number] LOWER AB PAIN Time Seen by Provider: 11/10/17 13:30 Source of Information: Reports: Patient, RN, RN Notes Reviewed History Limitations: Reports: No Limitations - History of Present Illness INITIAL COMMENTS - FREE TEXT/NARRATIVE: Pt presents to the ER with c/o severe lower abdominal pain/pelvic pain. Pt was seen on 10/31/17 and was transferred to [facility] for an Ultrasound and surgical consult. 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 Onset: Gradual Duration: Getting Worse Location: Reports: Abdomen Quality: Reports: Stabbing, Throbbing Improves with: Reports: None Worsens with: Reports: None Associated Symptoms: Reports: No Other Symptoms Bilateral Lower Abdomen Pain Score (Numeric/FACES): 8 - Related Data Allergies Allergy/AdvReac Type Severity Reaction Status Date / Time metronidazole Allergy Cannot Verified 11/10/17 13:16 Remember Penicillins Allergy Swelling Verified 11/10/17 13:16 Home Meds: Home Meds ALPRAZolam [Xanax] 0.5 mg PO BID PRN 12/07/13 [History] Lisinopril [Zestril] 20 mg PO BID 12/07/13 [History] Loperamide [Imodium] 2 mg PO TID PRN 12/07/13 [History] Multivitamin [Multi-Vitamin Daily] 1 tab PO DAILY 12/07/13 [History] QUEtiapine [SEROquel] 400 mg PO BEDTIME 12/07/13 [History] Ibuprofen 400 mg PO ASDIRECTED PRN 06/29/16 [History] traMADol [Ultram] 1 tab PO TID PRN 11/28/16 [History] oxyCODONE HCl/Acetaminophen [Endocet 5-325 Tablet] 1 tab PO Q4H PRN 11/10/17 [ History] Past Medical History HEENT 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: None Cardiovascular 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: Hypertension Respiratory 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: None Gastrointestinal 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: None Genitourinary 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: None 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 GROUNDMAN 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: 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 Other OB/BYN History: 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 Neurological 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: None Psychiatric 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: Anxiety, Bipolar, Depression Endocrine/Metabolic 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: None Hematologic 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: None Immunologic 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: None Oncologic (Cancer) 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: None Dermatologic 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: None - Infectious Disease History Infectious Disease 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: Chicken Pox - Past Surgical History Head Surgeries/Procedures: Reports: None GI Surgical 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: Cholecystectomy Female Surgical 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: Other (See Below) Other Female Surgeries/Procedures: partial 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 Musculoskeletal Surgical 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: Other (See Below) Social & Family History - Family History Family Medical History: Noncontributory - Tobacco Use Smoking Status *Q: Current Every Day Smoker Years of Tobacco use: 21 Packs/Tins Daily: 0.5 Used Tobacco, but Quit: No Second Hand Smoke Exposure: Yes - Caffeine Use Caffeine Use: Reports: Coffee, Soda - Alcohol Use Days Per Week of Alcohol Use: 0 - Recreational Drug Use Recreational Drug Use: No Drug Use in Last 12 Months: No - Living Situation & Occupation Living situation: Reports: with Family ED ROS GENERAL - Review of Systems Review Of Systems: ROS reveals no pertinent complaints other than HPI. ED EXAM, GI/ABD - Physical Exam Exam: See Below Exam Limited By: No Limitations General Appearance: Alert, WD/WN, Mild Distress Eyes: Bilateral: Normal Appearance, EOMI Ears: Normal External Exam, Hearing Grossly Normal Nose: Normal Inspection Throat/Mouth: Normal Inspection, Normal Voice, No Airway Compromise Head: Atraumatic, Normocephalic Neck: Normal Inspection, Supple, Non-Tender, Full Range of Motion Respiratory/Chest: No Respiratory Distress, Lungs Clear, Normal Breath Sounds, No Accessory Muscle Use, Chest Non-Tender Cardiovascular: Normal Peripheral Pulses, Regular Rate, Rhythm, No Edema, No Gallop, No JVD, No Murmur, No Rub GI/Abdominal Exam: Normal Bowel Sounds, Soft, No Distention, No Mass, Guarding, Tender (RLQ, LLQ) (Female) Exam: Deferred Rectal (Female) Exam: Deferred Back Exam: Normal Inspection, Full Range of Motion Extremities: Normal Inspection, Normal Range of Motion, Non-Tender, No Pedal Edema, Normal Capillary Refill Neurological: Alert, Oriented, CN II-XII Intact, Normal Cognition, Normal Gait, Normal Reflexes, No Motor/Sensory Deficits Psychiatric: Anxious Skin Exam: Warm, Dry, Intact, Normal Color, No Rash Lymphatic: No Adenopathy EKG INTERPRETATION EKG Date: 11/10/17 Time: 17:13 Rhythm: NSR Rate (Beats/Min): 71 [place]: Normal P-Wave: Present QRS: Normal ST-T: Normal QT: Normal Comparison: NA - No Prior EKG Course - Vital Signs Last Recorded V/S: Last Vital Signs Temp 98.4 F 11/10/17 17:26 Pulse 76 11/10/17 17:39 Resp 20 11/10/17 17:26 BP 180/114 H 11/10/17 17:39 Pulse Ox 99 11/10/17 17:26 - Orders/Labs/Meds Orders: Active Orders 24 hr Category Date Time Status EKG Documentation Completion [RC] STAT Care 11/10/17 17:09 Active Pelvis Non OB Comp [US] Urgent Exams 11/10/17 14:28 Taken Pelvis w Cont [CT] Stat Exams 11/10/17 16:06 Taken Labs: Laboratory Tests 11/10/17 11/10/17 11/10/17 Range/Units 14:26 14:26 14:55 WBC 6.7 (5.0-10.0) 10^3/uL RBC 4.82 (4.2-5.4) 10^6/uL Hgb 14.8 (12.0-16.0) g/dL Hct 43.4 (37.0-47.0) % MCV 90.0 (80-100) fL MCH 30.7 (27.0-34.0) pg MCHC 34.1 (33.0-35.0) g/dL Plt Count 214 (150-450) 10^3/uL Neut % (Auto) 65.0 (42.2-75.2) % Lymph % (Auto) 27.6 (20.5-50.1) % [place] % (Auto) 6.4 (2-8) % Eos % (Auto) 0.9 L (1.0-3.0) % Baso % (Auto) 0.1 (0.0-1.0) % Sodium 140 (135-145) mmol/L Potassium 4.1 (3.6-5.0) mmol/L Chloride 105 (101-111) mmol/L Carbon Dioxide 28.0 (21.0-31.0) mmol/L Anion Gap 11.1 BUN 9 (7-18) mg/dL Creatinine 0.8 (0.6-1.3) mg/dL Est Cr Clr Drug Dosing 109.70 mL/min Estimated GFR (MDRD) > 60 BUN/Creatinine Ratio 11.25 Glucose 85 (74-105) mg/dL Calcium 9.0 (8.4-10.2) mg/dl Total Bilirubin 0.4 (0.2-1.0) mg/dL AST 33 (10-42) IU/L ALT 39 (10-60) IU/L Alkaline Phosphatase 73 (42-121) IU/L Total Protein 7.7 (6.7-8.2) g/dl Albumin 4.1 (3.2-5.5) g/dl Globulin 3.6 Albumin/Globulin Ratio 1.14 Urine Color Yellow (YELLOW) Urine Appearance Clear (CLEAR) Urine pH 6.0 (5.0-9.0) Ur Specific [place] 1.025 (1.005-1.030) Urine Protein Negative (NEGATIVE) Urine Glucose (UA) Negative (NEGATIVE) Urine Ketones Negative (NEGATIVE) Urine Occult Blood Negative (NEGATIVE) Urine Nitrite Negative (NEGATIVE) Urine Bilirubin Negative (NEGATIVE) Urine Urobilinogen 0.2 (0.2-1.0) mg/dL Ur Leukocyte Esterase Negative (NEGATIVE) Urine RBC 0-5 /HPF Urine WBC 0-5 (0-5/HPF) /HPF Ur Epithelial Cells Few /HPF Urine Bacteria Rare (0-FEW/HPF) /HPF Urine Mucus Few H /LPF Urine Opiates Screen (NEGATIVE) Ur Oxycodone Screen (NEGATIVE) Urine Methadone Screen (NEGATIVE) Ur Barbiturates Screen (NEGATIVE) U Tricyclic Antidepress (NEGATIVE) Ur Phencyclidine Scrn (NEGATIVE) Ur Amphetamine Screen (NEGATIVE) U Methamphetamines Scrn (NEGATIVE) Urine MDMA Screen (NEGATIVE) U Benzodiazepines Scrn (NEGATIVE) Urine Cocaine Screen (NEGATIVE) U Marijuana (THC) Screen (NEGATIVE) 11/10/17 Range/Units 14:55 WBC (5.0-10.0) 10^3/uL RBC (4.2-5.4) 10^6/uL Hgb (12.0-16.0) g/dL Hct (37.0-47.0) % MCV (80-100) fL MCH (27.0-34.0) pg MCHC (33.0-35.0) g/dL Plt Count (150-450) 10^3/uL Neut % (Auto) (42.2-75.2) % Lymph % (Auto) (20.5-50.1) % [place] % (Auto) (2-8) % Eos % (Auto) (1.0-3.0) % Baso % (Auto) (0.0-1.0) % Sodium (135-145) mmol/L Potassium (3.6-5.0) mmol/L Chloride (101-111) mmol/L Carbon Dioxide (21.0-31.0) mmol/L Anion Gap BUN (7-18) mg/dL Creatinine (0.6-1.3) mg/dL Est Cr Clr Drug Dosing mL/min Estimated GFR (MDRD) BUN/Creatinine Ratio Glucose (74-105) mg/dL Calcium (8.4-10.2) mg/dl Total Bilirubin (0.2-1.0) mg/dL AST (10-42) IU/L ALT (10-60) IU/L Alkaline Phosphatase (42-121) IU/L Total Protein (6.7-8.2) g/dl Albumin (3.2-5.5) g/dl Globulin Albumin/Globulin Ratio Urine Color (YELLOW) Urine Appearance (CLEAR) Urine pH (5.0-9.0) Ur Specific [place] (1.005-1.030) Urine Protein (NEGATIVE) Urine Glucose (UA) (NEGATIVE) Urine Ketones (NEGATIVE) Urine Occult Blood (NEGATIVE) Urine Nitrite (NEGATIVE) Urine Bilirubin (NEGATIVE) Urine Urobilinogen (0.2-1.0) mg/dL Ur Leukocyte Esterase (NEGATIVE) Urine RBC /HPF Urine WBC (0-5/HPF) /HPF Ur Epithelial Cells /HPF Urine Bacteria (0-FEW/HPF) /HPF Urine Mucus /LPF Urine Opiates Screen Negative (NEGATIVE) Ur Oxycodone Screen Negative (NEGATIVE) Urine Methadone Screen Negative (NEGATIVE) Ur Barbiturates Screen Negative (NEGATIVE) U Tricyclic Antidepress Negative (NEGATIVE) Ur Phencyclidine Scrn Negative (NEGATIVE) Ur Amphetamine Screen Negative (NEGATIVE) U Methamphetamines Scrn Negative (NEGATIVE) Urine MDMA Screen Negative (NEGATIVE) U Benzodiazepines Scrn Negative (NEGATIVE) Urine Cocaine Screen Negative (NEGATIVE) U Marijuana (THC) Screen Negative (NEGATIVE) Meds: Medications Discontinued Medications Generic Name Dose Route Start Last Admin Trade Name Eric PRN Reason Stop Dose Admin Hydromorphone HCl 0.5 mg 11/10/17 15:04 11/10/17 15:36 Dilaudid IVPUSH 11/10/17 15:05 0.5 mg ONETIME ONE Administration Iopamidol 100 ml 11/10/17 16:05 11/10/17 16:42 Isovue-300 (61%) IVPUSH 11/10/17 16:06 100 ml ONETIME ONE Administration Lorazepam 0.5 mg 11/10/17 17:11 11/10/17 17:31 Ativan IVPUSH 11/10/17 17:12 0.5 mg ONETIME ONE Administration - Radiology Interpretation Free Text/Narrative:: US/Transvag NonOB: Suspicious blood flow dynamics solitary large ovary, RLQ. Torsion? Surgically absent uterus. Pelvic CT with contrast: IMPRESSION: 1. Smaller complex right ovarian cystic mass now measuring about 4 cm in greatest transverse diameter. This could be an involuting tubo-ovarian abscess. Endometrioma can have a similar appearance. 2. No sign of ovarian torsion. 3. Stable right ovarian thrombus. 4. There may be regional colitis in the rectosigmoid colon. This is unchanged. Thank you for allowing us to participate in the care of your patient. Dictated and Authenticated by: Jarrett Enamorado DO 11/10/2017 5:46 PM Central Time ([place] & [place]) See rad report Departure - Departure Time of Disposition: 17:33 Disposition: DC/Tfer to Acute Hospital 02 Condition: Fair Clinical Impression: Bilateral pelvic artery blood clots - Discharge Information Forms: ED Department Discharge, Interfacility Transfer EMTALA - My Orders Last 24 Hours: My Active Orders 11/10/17 14:28 Pelvis Non OB Comp [US] Urgent 11/10/17 17:09 EKG Documentation Completion [RC] STAT - Assessment/Plan Last 24 Hours: My Active Orders 11/10/17 14:28 Pelvis Non OB Comp [US] Urgent 11/10/17 17:09 EKG Documentation Completion [RC] STAT
[2017-11-10 17:39] VITALS: BP 180/114
--- NOTE | 2017-11-11 16:46 | EKG ---
11/10/2017 - AIDA GUAJARDO - FINDINGS: EKG shows a rate of beats per minute. Rhythm is sinus. Normal QRS complex, normal T-waves. No ST-segment changes. Normal axis. CONCLUSION: Normal EKG. [facility] /[id number]
== END 2017-11-10 18:38 ==
LOC: DL.ED 12:10
DX: I74.5 Embolism and thrombosis of iliac artery (principal); I10 Essential (primary) hypertension; F17.210 Nicotine dependence, cigarettes, uncomplicated; Z88.0 Allergy status to penicillin; Z88.8 Allergy status to other drugs, medicaments and biological substances; Z79.899 Other long term (current) drug therapy
CPT/HCPCS: 36415; 72193; 76830; 76856; 80053; 80305; 81001; 85025; 93005; 96374; 96375; 96376; 99284; J1170; J2060; Q9967

== ENCOUNTER 2018-01-27 19:00 | Emergency (ER) | payer MEDICAID ==
[2018-01-27 19:12] VITALS: BP 145/105
--- NOTE | 2018-01-27 19:13 | EDM.PDOCBH ---
ED HPI GENERAL MEDICAL PROBLEM - General Chief Complaint: Behavioral/Psych Stated Complaint: [id number] ANXIETY ATTACK Time Seen by Provider: 01/27/18 19:11 Source of Information: Reports: Patient History Limitations: Reports: No Limitations - History of Present Illness INITIAL COMMENTS - FREE TEXT/NARRATIVE: out of xanax 4 days thought had refill and PMD out of town till next week. having lots of problems now. - Related Data Allergies Allergy/AdvReac Type Severity Reaction Status Date / Time metronidazole Allergy Cannot Verified 01/27/18 19:06 Remember Penicillins Allergy Swelling Verified 01/27/18 19:06 Home Meds: Home Meds ALPRAZolam [Xanax] 0.5 mg PO BID PRN 12/07/13 [History] Lisinopril [Zestril] 20 mg PO BID 12/07/13 [History] Loperamide [Imodium] 2 mg PO TID PRN 12/07/13 [History] Multivitamin [Multi-Vitamin Daily] 1 tab PO DAILY 12/07/13 [History] QUEtiapine [SEROquel] 400 mg PO BEDTIME 12/07/13 [History] Ibuprofen 400 mg PO ASDIRECTED PRN 06/29/16 [History] traMADol [Ultram] 1 tab PO TID PRN 11/28/16 [History] oxyCODONE HCl/Acetaminophen [Endocet 5-325 Tablet] 1 tab PO Q4H PRN 11/10/17 [ History] Past Medical History HEENT 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: None Cardiovascular 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: Hypertension Respiratory 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: None Gastrointestinal 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: None Genitourinary 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: None MATERIAL RECLAIMER 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: None Other OB/BYN History: 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 Neurological 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: None Psychiatric 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: Anxiety, Bipolar, Depression Endocrine/Metabolic 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: None Hematologic 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: None Immunologic 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: None Oncologic (Cancer) 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: None Dermatologic 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: None - Infectious Disease History Infectious Disease 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: Chicken Pox - Past Surgical History Head Surgeries/Procedures: Reports: None GI Surgical 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: Cholecystectomy Female Surgical 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: Other (See Below) Other Female Surgeries/Procedures: partial 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 Musculoskeletal Surgical 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: Other (See Below) Social & Family History - Family History Family Medical History: Noncontributory - Caffeine Use Caffeine Use: Reports: Coffee, Soda - Living Situation & Occupation Living situation: Reports: with Family ED ROS GENERAL - Review of Systems Review Of Systems: ROS reveals no pertinent complaints other than HPI. ED EXAM, BEHAVIORAL HEALTH - Physical Exam Exam: See Below Exam Limited By: No Limitations General Appearance: Alert, WD/WN, Anxious, Mild Distress, Other (distraught) Eye Exam: Bilateral Eye: PERRL (pupils ER @ 4mm) Ears: Hearing Grossly Normal Throat/Mouth: Normal Voice, No Airway Compromise Head: Atraumatic Neck: Non-Tender, Full Range of Motion Respiratory/Chest: No Respiratory Distress Cardiovascular: Regular Rate, Rhythm GI/Abdominal: Soft, Non-Tender Neurological: Alert, Normal Cognition, Normal Gait, Oriented x 3, Other (anxious ) Psychiatric: Restless, Tearful, Agitated Skin Exam: Warm, Dry, Normal color Departure - Departure Time of Disposition: 19:13 Disposition: Home, Self-Care 01 Condition: Good Clinical Impression: Panic disorder - Discharge Information Instructions: Panic Attack, [id number] Referrals: Joao Crystal MD [Primary Care Provider] - Forms: ED Department Discharge Additional Instructions: 1) rest 2) recheck as needed rx given; xanax 0.5mg bid x 20
== END 2018-01-27 19:17 | disposition home or self-care (01) ==
LOC: DL.ED 19:00
DX: F41.0 Panic disorder [episodic paroxysmal anxiety] (principal); I10 Essential (primary) hypertension; Z88.8 Allergy status to other drugs, medicaments and biological substances; Z88.0 Allergy status to penicillin; Z79.899 Other long term (current) drug therapy
CPT/HCPCS: 99283

== ENCOUNTER 2018-02-07 12:20 | Emergency (ER) | payer MEDICAID ==
--- NOTE | 2018-02-07 12:46 | EDM.PDOC ---
ED HPI GENERAL MEDICAL PROBLEM - General Chief Complaint: ENT Problem Stated Complaint: tooth problem pain [id number] Time Seen by Provider: 02/07/18 12:46 Source of Information: Reports: Patient, RN, RN Notes Reviewed History Limitations: Reports: No Limitations - History of Present Illness INITIAL COMMENTS - FREE TEXT/NARRATIVE: Pt c/o pain from dental extraction from 2 weeks ago. Pt states since the swelling has gone down a sharp piece of tooth or bone is poking into the side of her tongue. She denies gum swelling or purulent drainage. Duration: Constant Location: Reports: Other (mouth/dental) Quality: Reports: Ache Severity: Severe Improves with: Reports: None Worsens with: Reports: None Associated Symptoms: Reports: No Other Symptoms Treatments HOOP PUNCHER: Reports: Acetaminophen, NSAIDS - Related Data Allergies Allergy/AdvReac Type Severity Reaction Status Date / Time metronidazole Allergy Cannot Verified 01/27/18 19:06 Remember Penicillins Allergy Swelling Verified 01/27/18 19:06 Home Meds: Home Meds ALPRAZolam [Xanax] 0.5 mg PO BID PRN 12/07/13 [History] Lisinopril [Zestril] 20 mg PO BID 12/07/13 [History] Loperamide [Imodium] 2 mg PO TID PRN 12/07/13 [History] Multivitamin [Multi-Vitamin Daily] 1 tab PO DAILY 12/07/13 [History] QUEtiapine [SEROquel] 400 mg PO BEDTIME 12/07/13 [History] Ibuprofen 400 mg PO ASDIRECTED PRN 06/29/16 [History] traMADol [Ultram] 1 tab PO TID PRN 11/28/16 [History] oxyCODONE HCl/Acetaminophen [Endocet 5-325 Tablet] 1 tab PO Q4H PRN 11/10/17 [ History] Past Medical History HEENT 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: None Cardiovascular 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: Hypertension Respiratory 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: None Gastrointestinal 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: None Genitourinary 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: None 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 Other OB/BYN History: 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 Neurological 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: None Psychiatric 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: Anxiety, Bipolar, Depression Endocrine/Metabolic 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: None Hematologic 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: None Immunologic 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: None Oncologic (Cancer) 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: None Dermatologic 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: None - Infectious Disease History Infectious Disease 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: Chicken Pox - Past Surgical History Head Surgeries/Procedures: Reports: None GI Surgical 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: Cholecystectomy Female Surgical 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: Other (See Below) Other Female Surgeries/Procedures: partial 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 Musculoskeletal Surgical 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: Other (See Below) Social & Family History - Family History Family Medical History: Noncontributory - Caffeine Use Caffeine Use: Reports: Coffee, Soda - Living Situation & Occupation Living situation: Reports: with Family ED ROS ENT - Review of Systems Review Of Systems: ROS reveals no pertinent complaints other than HPI. ED EXAM, ENT - Physical Exam Exam: See Below Exam Limited By: No Limitations General Appearance: Alert, WD/WN, No Apparent Distress Ears: Hearing Grossly Normal Nose: Normal Inspection Mouth/Throat: Normal Lips, Normal Oropharynx, Dental Pain, Dental Tenderness ( at extraction site of left mandibular molar region). No: Dental Abcess Head: Atraumatic, Normocephalic Neck: Normal Inspection, Supple, Non-Tender, Full Range of Motion Respiratory/Chest: No Respiratory Distress Neurological: Alert, Oriented, No Motor/Sensory Deficits Psychiatric: Normal Mood Skin: Warm, Dry, Intact, Normal Color, No Rash Course - Orders/Labs/Meds Meds: Medications Discontinued Medications Generic Name Dose Route Start Last Admin Trade Name Freq PRN Reason Stop Dose Admin Lidocaine HCl 15 ml 02/07/18 12:55 Xylocaine 2% Viscous PO 02/07/18 12:56 ONETIME ONE Departure - Departure Time of Disposition: 12:56 Disposition: Home, Self-Care 01 Condition: Good Clinical Impression: Postoperative pain, Pain, dental - Discharge Information Instructions: Tooth Injuries, [id number] Forms: ED Department Discharge Additional Instructions: Rx: Viscous lidocaine 2% Follow up with your dentist tomorrow morning.
[2018-02-07] MEDS ORDERED: Lidocaine 2% Viscous Solution 15 ML Cup PO ONE (12:55)
[2018-02-07 13:09] VITALS: BP 141/93
== END 2018-02-07 13:10 | disposition home or self-care (01) ==
LOC: DL.ED 12:20
DX: G89.18 Other acute postprocedural pain (principal); K08.89 Other specified disorders of teeth and supporting structures; I10 Essential (primary) hypertension; Z88.0 Allergy status to penicillin; Z88.8 Allergy status to other drugs, medicaments and biological substances; Z79.899 Other long term (current) drug therapy; Z98.890 Other specified postprocedural states
CPT/HCPCS: 99282

== ENCOUNTER 2018-02-22 15:59 | Emergency (ER) | payer MEDICAID ==
[2018-02-22 16:09] VITALS: BP 146/101
--- NOTE | 2018-02-22 16:25 | EDM.PDOC ---
ED HPI GENERAL MEDICAL PROBLEM - General Chief Complaint: Chest Pain Stated Complaint: CHEST PAIN / SOB Time Seen by Provider: 02/22/18 16:16 Source of Information: Reports: Patient History Limitations: Reports: No Limitations - History of Present Illness INITIAL COMMENTS - FREE TEXT/NARRATIVE: This 37 yo female patient reports to the ED with left sided chest pain. The patient reports her symptoms started 3 days ago. The patient reports the area of pain is just above her left breast. The patient reports increased pain with palpation. The patient does not know of any specific injury to the area. The patient reports that she attempted to get into the clinic, but was advised to come to the ED. The patient reports that she is not too sure if it is her anxiety or something else. Onset Date: 02/19/18 Duration: Constant Location: Reports: Chest (left sided chest pain) Quality: Reports: Ache, Dull Severity: Moderate Improves with: Reports: Rest Worsens with: Reports: Other (palpation) Context: Reports: Other Associated Symptoms: Reports: Chest Pain Left Chest Pain Score (Numeric/FACES): 7 - Related Data Allergies Allergy/AdvReac Type Severity Reaction Status Date / Time metronidazole Allergy Cannot Verified 02/22/18 16:09 Remember Penicillins Allergy Swelling Verified 02/22/18 16:09 Home Meds: Home Meds ALPRAZolam [Xanax] 0.5 mg PO BID PRN 12/07/13 [History] Lisinopril [Zestril] 20 mg PO BID 12/07/13 [History] Loperamide [Imodium] 2 mg PO TID PRN 12/07/13 [History] Multivitamin [Multi-Vitamin Daily] 1 tab PO DAILY 12/07/13 [History] QUEtiapine [SEROquel] 400 mg PO BEDTIME 12/07/13 [History] Ibuprofen 400 mg PO ASDIRECTED PRN 06/29/16 [History] traMADol [Ultram] 1 tab PO TID PRN 11/28/16 [History] Past Medical History HEENT 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: None Cardiovascular 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: Hypertension Respiratory 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: None Gastrointestinal 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: None Genitourinary 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: None 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: None Other OB/BYN History: 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 Neurological 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: None Psychiatric 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: Anxiety, Bipolar, Depression Endocrine/Metabolic 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: None Hematologic 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: None Immunologic 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: None Oncologic (Cancer) 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: None Dermatologic 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: None - Infectious Disease History Infectious Disease 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: Chicken Pox - Past Surgical History Head Surgeries/Procedures: Reports: None GI Surgical 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: Cholecystectomy Female Surgical 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: Other (See Below) Other Female Surgeries/Procedures: partial 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 Social & Family History - Family History Family Medical History: Noncontributory - Tobacco Use Smoking Status *Q: Current Every Day Smoker Years of Tobacco use: 14 Packs/Tins Daily: 0.5 Second Hand Smoke Exposure: Yes - Caffeine Use Caffeine Use: Reports: Coffee, Soda - Recreational Drug Use Recreational Drug Use: No - Living Situation & Occupation Living situation: Reports: with Family ED ROS GENERAL - Review of Systems Review Of Systems: ROS reveals no pertinent complaints other than HPI. ED EXAM, GENERAL - Physical Exam Exam: See Below Exam Limited By: No Limitations General Appearance: Alert, WD/WN, Anxious, Moderate Distress Eye Exam: Bilateral Eye: EOMI, Normal Inspection, PERRL Ears: Normal External Exam, Normal Canal, Hearing Grossly Normal, Normal TMs Nose: Normal Inspection, Normal Mucosa, No Blood Throat/Mouth: Normal Inspection, Normal Lips, Normal Teeth, Normal Gums, Normal Oropharynx, Normal Voice, No Airway Compromise Head: Atraumatic, Normocephalic Neck: Normal Inspection, Supple, Non-Tender, Full Range of Motion Respiratory/Chest: No Respiratory Distress, Lungs Clear, Normal Breath Sounds, No Accessory Muscle Use, Other (Tenderness to the left rib (increased pain with palpation to one specific area)) Cardiovascular: No Edema, No Gallop, No JVD, No Murmur, No Rub, Tachycardia GI/Abdominal: Normal Bowel Sounds, Soft, Non-Tender, No Organomegaly, No Distention, No Abnormal Bruit, No Mass (Female) Exam: Deferred Rectal (Female) Exam: Deferred Back Exam: Normal Inspection, Full Range of Motion, NT Extremities: Normal Inspection, Normal Range of Motion, Non-Tender, Normal Capillary Refill, No Pedal Edema Neurological: Alert, Oriented, CN II-XII Intact, Normal Cognition, Normal Gait, Normal Reflexes, No Motor/Sensory Deficits Psychiatric: Normal Affect, Normal Mood Skin Exam: Warm, Dry, Intact, Normal Color, No Rash Lymphatic: No Adenopathy Course - Vital Signs Last Recorded V/S: Last Vital Signs Temp 36.4 C 02/22/18 16:04 Pulse 105 H 02/22/18 16:04 Resp 18 02/22/18 16:04 BP 146/101 H 02/22/18 16:04 Pulse Ox 97 02/22/18 16:04 - Orders/Labs/Meds Orders: Active Orders 24 hr Category Date Time Status EKG Documentation Completion [RC] URGENT Care 02/22/18 16:11 Ordered Labs: Laboratory Tests 02/22/18 02/22/18 Range/Units 16:27 16:27 WBC 7.7 (5.0-10.0) 10^3/uL RBC 5.40 (4.2-5.4) 10^6/uL Hgb 16.4 H D (12.0-16.0) g/dL Hct 47.7 H (37.0-47.0) % MCV 88.3 (80-100) fL MCH 30.4 (27.0-34.0) pg MCHC 34.4 (33.0-35.0) g/dL Plt Count 176 (150-450) 10^3/uL Neut % (Auto) 64.5 (42.2-75.2) % Lymph % (Auto) 26.1 (20.5-50.1) % [place] % (Auto) 8.8 H (2-8) % Eos % (Auto) 0.5 L (1.0-3.0) % Baso % (Auto) 0.1 (0.0-1.0) % Sodium 135 (135-145) mmol/L Potassium 3.0 L (3.6-5.0) mmol/L Chloride 99 L (101-111) mmol/L Carbon Dioxide 25.0 (21.0-31.0) mmol/L Anion Gap 14.0 BUN 13 (7-18) mg/dL Creatinine 0.8 (0.6-1.3) mg/dL Est Cr Clr Drug Dosing 132.83 mL/min Estimated GFR (MDRD) > 60 BUN/Creatinine Ratio 16.25 Glucose 109 H (74-105) mg/dL Calcium 9.7 (8.4-10.2) mg/dl Total Bilirubin 0.9 (0.2-1.0) mg/dL AST 39 (10-42) IU/L ALT 48 (10-60) IU/L Alkaline Phosphatase 72 (42-121) IU/L Troponin I < 0.02 (0.00-0.02) ng/ml Total Protein 8.6 H (6.7-8.2) g/dl Albumin 4.8 (3.2-5.5) g/dl Globulin 3.8 Albumin/Globulin Ratio 1.26 Meds: Medications Discontinued Medications Generic Name Dose Route Start Last Admin Trade Name Eric PRN Reason Stop Dose Admin Alprazolam 0.5 mg 02/22/18 17:45 Xanax PO 02/22/18 17:46 ONETIME ONE Departure - Departure Time of Disposition: 17:46 Disposition: Home, Self-Care 01 Condition: Fair Clinical Impression: Chest wall pain, Anxiety Instructions: Chest Wall Pain, [id number]-[id number], Panic Attack, [id number] Forms: ED Department Discharge Care Plan Goals: The patient was advised of the examination, lab and EKG results during the visit. The patient was given an oral dose of Xanax while in the ED. The patient was discharged with a script for Xanax (0.5 mg) #20 to take 1 by mouth 2 times per day as needed for anxiety. The patient should follow-up with her primary care facility for continued evaluation and further management. If the patient has any additional symptoms or concerns, the patient should visit her primary care facility or return to the emergency department. - My Orders Last 24 Hours: My Active Orders 02/22/18 16:11 EKG Documentation Completion [RC] URGENT - Assessment/Plan Last 24 Hours: My Active Orders 02/22/18 16:11 EKG Documentation Completion [RC] URGENT
[2018-02-22 16:53] LABS: CHLORIDE,CL 99 mmol/L (101-111); SODIUM,NA 135 mmol/L (135-145)
--- NOTE | 2018-02-22 17:20 | CR ---
Clinical history: 37-year-old female left-sided chest pain. Interpretation: No acute new cardiopulmonary abnormality since 27 May 2015 exam. Upright AP portable chest with external quality assurance monitor body leads. Riley thorax unremarkable. Normal cardiac silhouette and left-sided aortic arch. No cephalization of vascular flow, signs of alveolar edema or dependent pleural fluid accumulation. No lung mass, hilar lymphadenopathy or pneumonia.
[2018-02-22] MEDS ORDERED: ALPRAZolam 0.5 MG Tab PO ONE (17:45)
--- NOTE | 2018-02-24 11:39 | EKG ---
02/22/2018- AIDA GUAJARDO - FINDINGS: EKG, per my reading, shows sinus rhythm at the rate of 100 to 110. MOD /[id number]
== END 2018-02-22 18:30 | disposition home or self-care (01) ==
LOC: DL.ED 15:59
DX: R07.89 Other chest pain (principal); F41.9 Anxiety disorder, unspecified; I10 Essential (primary) hypertension; F17.210 Nicotine dependence, cigarettes, uncomplicated; Z88.8 Allergy status to other drugs, medicaments and biological substances; Z88.0 Allergy status to penicillin; Z79.899 Other long term (current) drug therapy
CPT/HCPCS: 36415; 71045; 80053; 84484; 85025; 93005; 99285; A9270

== ENCOUNTER 2018-03-15 15:44 | Emergency (ER) | payer MEDICAID ==
[2018-03-15 15:58] VITALS: BP 132/65
[2018-03-15] MEDS ORDERED: LORazepam 2 MG/ML Syringe IM ONE (17:08)
--- NOTE | 2018-03-15 18:10 | EDM.PDOCBH ---
Scribed by Teetee Ngo 03/15/18 1810 for Black So MD ED HPI GENERAL MEDICAL PROBLEM - General Chief Complaint: Behavioral/Psych Stated Complaint: THINKS IT MAY BE HEART ATTACKsob WHOLE BODY TINGLY Time Seen by Provider: 03/15/18 17:08 Source of Information: Reports: Patient, RN, RN Notes Reviewed History Limitations: Reports: No Limitations - History of Present Illness INITIAL COMMENTS - FREE TEXT/NARRATIVE: Patient presents to ER with complaint of panic attack that began as she was driving to town. Patient reports history of anxiety treated with Xanax. Reports frequent panic attacks. Denies any recent illness or injury. Patient states there was no particular trigger to her anxiety today. Pt later admits that her friend gave her a "speed ball" for an "energy boost" shortly before onset of the panic attack. Onset: Today Duration: Chronic, Getting Worse Severity: Severe Improves with: Reports: None Worsens with: Reports: None Associated Symptoms: Reports: No Other Symptoms - Related Data Allergies Allergy/AdvReac Type Severity Reaction Status Date / Time metronidazole Allergy Cannot Verified 03/03/18 19:47 Remember Penicillins Allergy Swelling Verified 03/03/18 19:47 Home Meds: Home Meds Loperamide [Imodium] 2 mg PO TID PRN 12/07/13 [History] Multivitamin [Multi-Vitamin Daily] 1 tab PO DAILY 12/07/13 [History] QUEtiapine [SEROquel] 400 mg PO BEDTIME 12/07/13 [History] Ibuprofen 400 mg PO ASDIRECTED PRN 06/29/16 [History] traMADol [Ultram] 1 tab PO TID PRN 11/28/16 [History] Past Medical History HEENT 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: None Cardiovascular 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: Hypertension Respiratory 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: None Gastrointestinal 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: None Genitourinary 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: None 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: 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 Neurological 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: None Psychiatric 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: Anxiety, Bipolar, Depression Endocrine/Metabolic 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: None Hematologic 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: None Immunologic 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: None Oncologic (Cancer) 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: None Dermatologic 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: None - Infectious Disease History Infectious Disease 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: Chicken Pox - Past Surgical History Head Surgeries/Procedures: Reports: None GI Surgical 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: Cholecystectomy Female Surgical 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: Oophorectomy, Other (See Below) Other Female Surgeries/Procedures: partial 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 Musculoskeletal Surgical 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: Other (See Below) Social & Family History - Family History Family Medical History: Noncontributory - Tobacco Use Smoking Status *Q: Current Every Day Smoker Years of Tobacco use: 14 Packs/Tins Daily: 1 - Caffeine Use Caffeine Use: Reports: Coffee, Soda, Tea - Alcohol Use Days Per Week of Alcohol Use: 2 Number of Drinks Per Day: 3 Total Drinks Per Week: 6 - Recreational Drug Use Recreational Drug Use: No - Living Situation & Occupation Living situation: Reports: with Family ED ROS GENERAL - Review of Systems Review Of Systems: ROS reveals no pertinent complaints other than HPI. ED EXAM, BEHAVIORAL HEALTH - Physical Exam Exam: See Below Exam Limited By: Other (behavioral anxiety and hyperventilating) General Appearance: Alert, WD/WN, Moderate Distress Ears: Hearing Grossly Normal Nose: Normal Inspection Throat/Mouth: Normal Inspection, Normal Lips, Normal Teeth, Normal Gums, Normal Oropharynx, Normal Voice, No Airway Compromise Head: Atraumatic, Normocephalic Neck: Normal Inspection, Supple, Non-Tender, Full Range of Motion Respiratory/Chest: No Respiratory Distress, Lungs Clear, Normal Breath Sounds, No Accessory Muscle Use, Chest Non-Tender, Other (hyperventilating) Cardiovascular: Regular Rate, Rhythm, Tachycardia GI/Abdominal: Normal Bowel Sounds, Soft, Non-Tender, No Distention (Female) Exam: Deferred Rectal (Female) Exam: Deferred Back Exam: Normal Inspection Extremities: Normal Inspection, Normal Range of Motion, Non-Tender, Normal Capillary Refill, No Pedal Edema Neurological: Alert, CN II-XII Intact, Normal Cognition, No Motor/Sensory Deficits, Oriented x 3 Psychiatric: Restless, Agitated, Other (panic attack with hyperventilating). No : Homicidal Thoughts, Suicidal Plan, Suicidal Thoughts, Auditory Hallucinations , Visual Hallucinations, Paranoid Thoughts Skin Exam: Warm, Dry, Intact, Normal color, No rash COURSE, BEHAVIORAL HEALTH COMP - Course Vital Signs: Last Vital Signs Temp 36.2 C 03/15/18 15:58 Pulse 136 H 03/15/18 15:58 Resp 28 H 03/15/18 15:58 BP 132/65 03/15/18 15:58 Pulse Ox 91 L 03/15/18 15:58 Orders, Labs, Meds: Medications Discontinued Medications Generic Name Dose Route Start Last Admin Trade Name Eric PRN Reason Stop Dose Admin Lorazepam 2 mg 03/15/18 17:08 03/15/18 17:18 Ativan IM 03/15/18 17:09 2 mg ONETIME ONE Administration Departure - Departure Time of Disposition: 17:59 Disposition: Home, Self-Care 01 Condition: Fair Clinical Impression: Anxiety, Panic attack Stimulant intoxication Qualifiers: Complication of substance-induced condition: uncomplicated Qualified Code(s): F15.920 - Other stimulant use, unspecified with intoxication, uncomplicated - Discharge Information Instructions: Panic Attack, [id number], Stimulant Use Disorder- Methamphetamines Referrals: Joao Crystal MD [Primary Care Provider] - Forms: ED Department Discharge Additional Instructions: RX: Lorazepam 1mg. *DO NOT DRIVE WHILE UNDER THE INFLUENCE OF THIS MEDICATION. Do not takeany illicit stimulants or substances in the future. Follow up with your doctor if any problems. I have read and agree with the documentation that has been completed regarding this visit. By signing this record, I attest that the documentation was completed in my physical presence and is an accurate record of the encounter.
== END 2018-03-15 18:20 | disposition home or self-care (01) ==
LOC: DL.ED 15:44
DX: F41.0 Panic disorder [episodic paroxysmal anxiety] (principal); F15.120 Other stimulant abuse with intoxication, uncomplicated; F17.210 Nicotine dependence, cigarettes, uncomplicated; I10 Essential (primary) hypertension; Z88.8 Allergy status to other drugs, medicaments and biological substances; Z88.0 Allergy status to penicillin
CPT/HCPCS: 99282; J2060

== ENCOUNTER 2018-03-19 13:53 | Emergency (ER) | payer MEDICAID ==
[2018-03-19 14:14] VITALS: BP 143/109
[2018-03-19] MEDS ORDERED: LORazepam 0.5 MG Tab PO ONE (14:38)
[2018-03-19] MEDS ORDERED: LORazepam 1 MG Tab PO ONE (14:39)
--- NOTE | 2018-03-19 14:47 | EDM.PDOCBH ---
ED HPI GENERAL MEDICAL PROBLEM - General Chief Complaint: Behavioral/Psych Stated Complaint: ANXIETY Time Seen by Provider: 03/19/18 14:35 Source of Information: Reports: Patient History Limitations: Reports: No Limitations - History of Present Illness INITIAL COMMENTS - FREE TEXT/NARRATIVE: This 37 yo female patient reports to the ED with increased anxiety. The patient was seen in the ED 4 days ago for similar symptoms, but has not been able to establish with a primary provider at this time. The patient has an appointment with a provider on (03/25/18) for continued evaluation and care. The patient reports that she has taken the medications given to her during her previous visit, but does not have enough to make it to her appointment. Onset: Today Duration: Minutes:, Constant, Getting Worse Location: Reports: Generalized Quality: Reports: Other Severity: Severe Improves with: Reports: None Worsens with: Reports: None Context: Reports: Other Associated Symptoms: Reports: No Other Symptoms - Related Data Allergies Allergy/AdvReac Type Severity Reaction Status Date / Time metronidazole Allergy Cannot Verified 03/19/18 14:14 Remember Penicillins Allergy Swelling Verified 03/19/18 14:14 Home Meds: Home Meds Loperamide [Imodium] 2 mg PO TID PRN 12/07/13 [History] Multivitamin [Multi-Vitamin Daily] 1 tab PO DAILY 12/07/13 [History] QUEtiapine [SEROquel] 400 mg PO BEDTIME 12/07/13 [History] Ibuprofen 400 mg PO ASDIRECTED PRN 06/29/16 [History] traMADol [Ultram] 1 tab PO TID PRN 11/28/16 [History] Past Medical History HEENT 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: None Cardiovascular 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: Hypertension Respiratory 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: None Gastrointestinal 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: None Genitourinary 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: None 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 Other BATCH OR CONTINUOUS STILL OPERATOR History: 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 Neurological 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: None Psychiatric 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: Anxiety, Bipolar, Depression Endocrine/Metabolic 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: None Hematologic 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: None Immunologic 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: None Oncologic (Cancer) 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: None Dermatologic 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: None - Infectious Disease History Infectious Disease 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: Chicken Pox - Past Surgical History Head Surgeries/Procedures: Reports: None GI Surgical 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: Cholecystectomy Female Surgical 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: Oophorectomy, Other (See Below) Other Female Surgeries/Procedures: partial 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 Musculoskeletal Surgical 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: Other (See Below) Social & Family History - Family History Family Medical History: Noncontributory - Caffeine Use Caffeine Use: Reports: Coffee, Soda, Tea - Living Situation & Occupation Living situation: Reports: with Family ED ROS GENERAL - Review of Systems Review Of Systems: ROS reveals no pertinent complaints other than HPI. ED EXAM, BEHAVIORAL HEALTH - Physical Exam Exam: See Below Exam Limited By: No Limitations General Appearance: Alert, WD/WN, Anxious, Moderate Distress Eye Exam: Bilateral Eye: EOMI, Normal Inspection, PERRL Ears: Normal External Exam, Normal Canal, Hearing Grossly Normal, Normal TMs Nose: Normal Inspection, Normal Mucosa, No Blood Throat/Mouth: Normal Inspection, Normal Lips, Normal Teeth, Normal Gums, Normal Oropharynx, Normal Voice, No Airway Compromise Head: Atraumatic, Normocephalic Neck: Normal Inspection, Supple, Non-Tender, Full Range of Motion Respiratory/Chest: No Respiratory Distress, Lungs Clear, Normal Breath Sounds, No Accessory Muscle Use, Chest Non-Tender Cardiovascular: Normal Peripheral Pulses, Regular Rate, Rhythm, No Edema, No Gallop, No JVD, No Murmur, No Rub GI/Abdominal: Normal Bowel Sounds, Soft, Non-Tender, No Organomegaly, No Distention, No Abnormal Bruit, No Mass (Female) Exam: Deferred Rectal (Female) Exam: Deferred Back Exam: Normal Inspection, Full Range of Motion, NT Extremities: Normal Inspection, Normal Range of Motion, Non-Tender, Normal Capillary Refill, No Pedal Edema Neurological: Alert, Normal Mood/Affect, CN II-XII Intact, Normal Cognition, Normal Gait, Normal Reflexes, No Motor/Sensory Deficits, Oriented x 3 Psychiatric: Depressed Mood, Restless Skin Exam: Warm, Dry, Normal color, No rash COURSE, BEHAVIORAL HEALTH COMP - Course Vital Signs: Last Vital Signs Temp 36.8 C 03/19/18 13:59 Pulse 112 H 03/19/18 13:59 Resp 16 03/19/18 13:59 BP 143/109 H 03/19/18 13:59 Pulse Ox 100 03/19/18 13:59 Orders, Labs, Meds: Medications Discontinued Medications Generic Name Dose Route Start Last Admin Trade Name Freq PRN Reason Stop Dose Admin Lorazepam 0.5 mg 03/19/18 14:38 Ativan PO 03/19/18 14:39 ONETIME ONE Lorazepam 1 mg 03/19/18 14:39 Ativan PO 03/19/18 14:40 ONETIME ONE Departure - Departure Time of Disposition: 14:47 Disposition: Home, Self-Care 01 Preliminary Cause of *Q: Sepsis & Multi System Organ Failure Condition: Fair Clinical Impression: Anxiety - Discharge Information *PRESCRIPTION DRUG MONITORING PROGRAM REVIEWED*: Yes *COPY OF PRESCRIPTION DRUG MONITORING REPORT IN PATIENT NATALIE: No Care Plan Goals: The patient was advised of the examination results during the visit. The patient was given an oral dose of Ativan (1 mg) while in the ED. The patient was discharged with a script for Ativan (1 mg) # 5 to take 1 by mouth every 6 hours only as needed for increased anxiety. The patient was encouraged to follow -up with a primary care facility for continued evaluation and further management of her anxiety. If the patient has any additional symptoms or concerns, the patient should visit her primary care facility or return to the emergency department.
== END 2018-03-19 15:30 | disposition home or self-care (01) ==
LOC: DL.ED 13:53
DX: F41.9 Anxiety disorder, unspecified (principal); I10 Essential (primary) hypertension; Z88.0 Allergy status to penicillin; Z88.8 Allergy status to other drugs, medicaments and biological substances; Z79.899 Other long term (current) drug therapy
CPT/HCPCS: 99282; A9270

== ENCOUNTER 2018-04-30 16:05 | Emergency (ER) | payer MEDICAID ==
[2018-04-30 16:49] VITALS: BP 138/85
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
[2018-04-30] MEDS ORDERED: LORazepam 1 MG Tab PO ONE (17:55)
== END 2018-04-30 18:16 | disposition home or self-care (01) ==
LOC: DL.ED 16:05
DX: F41.9 Anxiety disorder, unspecified (principal); I10 Essential (primary) hypertension; F17.210 Nicotine dependence, cigarettes, uncomplicated; Z88.8 Allergy status to other drugs, medicaments and biological substances; Z88.0 Allergy status to penicillin
CPT/HCPCS: 80305; 81001; 99283; A9270

== ENCOUNTER → 2019-02-10 | Outpatient (CLI) | payer MEDICAID | LOC: DL.MRI 10:48 | PROVIDERS: ATTEND Nurse Practitioner Family | DX: M79.674 Pain in right toe(s) (principal); M25.474 Effusion, right foot; M65.9 Synovitis and tenosynovitis, unspecified; M25.471 Effusion, right ankle | CPT/HCPCS: 73718-RT ==

== ENCOUNTER 2019-05-26 07:50 | Day surgery (SDC) | payer MEDICAID ==
[~2019-05-26 07:50] MED LIST: Clindamycin Phosphate 600 MG in Sodium Chloride 0.9% 100 ML IV ONE; Lactated Ringers 1,000 ML IV SCH; Sodium Chloride 0.9% 10 ML Syringe FLUSH PRN
[2019-05-26] MEDS ORDERED: Ondansetron 4 MG/2 ML SDV IV ONE (07:51)
[2019-05-26] MEDS ORDERED: Lidocaine 1% 30 ML SDV INJECT ONE ×5 (07:51→11:25)
[2019-05-26] MEDS ORDERED: fentaNYL 100 MCG/2 ML SDV IV ONE (07:51)
[2019-05-26] MEDS ORDERED: Midazolam 1 MG/ML 2 ML SDV IV ONE (07:51)
[2019-05-26] MEDS ORDERED: Propofol 200 MG/20 ML SDV IV ONE (07:51)
[2019-05-26] MEDS ORDERED: Dexamethasone 4 MG/ML SDV IV ONE (07:51)
[2019-05-26] MEDS ORDERED: Bupivacaine 0.5% 30 ML SDV INJECT ONE ×5 (07:51→11:25)
[2019-05-26] MEDS ORDERED: Ketorolac 30 MG/ML SDV IVPUSH ONE (07:51)
[2019-05-26] MEDS ORDERED: Betamethasone Acetate/Betamethasone Sod Phosphate 30 MG/5 ML MDV IM ONE ×3 (07:51→11:25)
[2019-05-26] MEDS ORDERED: Betamethasone Acetate/Betamethasone Sod Phosphate 30 MG/5 ML MDV ONE (10:10)
[2019-05-26] MEDS ORDERED: Bupivacaine 0.5% 30 ML SDV ONE (10:10)
[2019-05-26] MEDS ORDERED: Lidocaine 1% 30 ML SDV ONE (10:11)
[2019-05-26] MEDS ORDERED: Acetaminophen/oxyCODONE 325-5 MG Tab PO PRN (11:34)
--- NOTE | 2019-05-26 11:37 | PCM.OPNOTE ---
- General Post-Op/Procedure Note Date of Surgery/Procedure: 05/26/19 Operative Procedure(s): right foot 1st MTPJ exploration with debridement of scar tissue Pre Op Diagnosis: right foot 1st MTPJ injury with painful scar tissue Post-Op Diagnosis: estrella Anesthesia Technique: Local, MAC Primary Surgeon: Fay Peterson Anesthesia Provider: Galo HURTADO in mLs: 5 Complications: none Condition: Good Free Text/Narrative:: Pt tolerated procedure well and was transported to recovery with vascular status intact to right foot. Well padded compression dressing applied.
[2019-05-26 16:00] VITALS: BP 146/104; PULSE 85
--- NOTE | 2019-05-27 13:01 | OR ---
DATE: 05/26/2019 PREOPERATIVE DIAGNOSIS: Right foot 1st metatarsophalangeal joint pain with scar tissue/crush injury. POSTOPERATIVE DIAGNOSIS: Left foot 1st metatarsophalangeal joint inflammation with scar tissue and mild bunion. PROCEDURE PERFORMED: Left foot 1st metatarsophalangeal joint exploration with debridement and shaving of bone. ANESTHESIA: Local MAC with preoperative local block of 10 mL of 1:1 mixture of 1% lidocaine plain and 0.5% Marcaine plain. TOURNIQUET TIME: 37 minutes, pneumatic ankle tourniquet. ESTIMATED BLOOD LOSS: Minimal. SPECIMEN REMOVED: None. COMPLICATIONS: None. INDICATIONS: Beverley is a 39-year-old female who presents with right foot injury. I have been seeing her for a few months now for this injury to her right great toe joint. She dropped a cast iron fortune on that foot back in January. She has had significant swelling and pain since that time. [facility] Cam [facility], did x-rays and an MRI. She states the pressure from the boot hurt too much on that toe, so she had to stop it now, has just been getting around with flip flops. She also has been doing anti-inflammatories and physical therapy with no relief. She is to the point where she really cannot even move that toe without significant pain. X-rays of the right foot reveal no signs of fracture present. Right foot MRI reveals no signs of fracture or stress reaction. There is a 1st metatarsophalangeal joint effusion with surrounding increased signal intensity to the soft tissues, some increased signal at the flexor longus tendon. The patient voiced good understanding of the proposed procedure and possible complications and elects to have surgery at this time. DESCRIPTION OF PROCEDURE: The patient was taken to the operating room lying in a supine position. After adequate anesthesia induction as described above, the right foot was prepped and draped in the usual sterile fashion. A pneumatic ankle tourniquet was inflated to 225 mmHg. Attention was then directed to the right foot dorsal aspect of the 1st metatarsophalangeal joint area where an approximately 6 cm linear incision was made overlying the joint. Sharp and blunt dissection was performed down to the level of the joint capsule. It was noted that there was a significant amount of scar tissue overlying the dorsal aspect of the joint that was adhered down to the flexor tendon. This was all cleaned away and debrided so that only healthy tissue remained. An inverted-L capsulotomy was made to expose the 1st metatarsophalangeal joint. There was a significant amount of fluid in the joint, and this was all cleaned away. There was inflammation tissue along the dorsal and medial aspects of the joint, and the medial capsule was also severely thickened and scarred. This was debrided with a 15 blade to evenly healthy-appearing tissue. The joint was inspected, and there was a very small defect at the plantar medial aspect, which was drilled with a 0.045 K-wire. There was noted to be some hypertrophy of the medial aspect of the 1st metatarsal head. This was shaved with a sagittal saw. The joint was smooth with range of motion without any crepitus. No other areas of inflamed or scar tissue remained, and the joint appeared healthy without any other defects. The area was then irrigated with copious amounts of sterile saline. Deep closure was completed with 3-0 Vicryl, and skin closure was completed with 4-0 nylon. The toe was noted to be in good rectus alignment at this time. The foot was then dressed with Xeroform to the incision site, fluffs, Webril, and an Arturo wrap. She tolerated the procedure and anesthesia well and left the operating room for recovery with vascular status intact to the right foot as noted by immediate hyperemia upon deflation of the ankle tourniquet. The patient was then discharged home when she met hospital discharge requirements. [facility] /[id number]
== END 2019-05-26 13:20 | disposition home or self-care (01) ==
LOC: DL.SDS 07:50
PROVIDERS: ATTEND Podiatrist
DX: M21.612 Bunion of left foot (principal); M25.475 Effusion, left foot; M13.872 Other specified arthritis, left ankle and foot; L90.5 Scar conditions and fibrosis of skin; I10 Essential (primary) hypertension; J45.909 Unspecified asthma, uncomplicated; F41.8 Other specified anxiety disorders; F17.210 Nicotine dependence, cigarettes, uncomplicated; Z88.0 Allergy status to penicillin; Z88.8 Allergy status to other drugs, medicaments and biological substances; Z79.899 Other long term (current) drug therapy
CPT/HCPCS: 28296; A9270; J0702; J1100; J1885; J2001; J2250; J2405; J2704; J3010; J3490; J7050; J7120

== ENCOUNTER 2019-10-06 07:46 | Day surgery (SDC) | payer MEDICAID ==
[2019-10-06] MEDS ORDERED: Dexamethasone 4 MG/ML SDV IV ONE (07:47)
[2019-10-06] MEDS ORDERED: Bupivacaine 0.5% 30 ML SDV ONE ×3 (07:47→12:36)
[2019-10-06] MEDS ORDERED: Ketorolac 30 MG/ML SDV IVPUSH ONE (07:47)
[2019-10-06] MEDS ORDERED: fentaNYL 100 MCG/2 ML SDV IV ONE (07:47)
[2019-10-06] MEDS ORDERED: Lidocaine 1% 30 ML SDV ONE ×2 (07:47→10:15)
[2019-10-06] MEDS ORDERED: Propofol 1,000 MG/100 ML SDV IV ONE (07:47)
[2019-10-06] MEDS ORDERED: Midazolam 1 MG/ML 2 ML SDV IV ONE (07:47)
[2019-10-06] MEDS ORDERED: Clindamycin Phosphate 600 MG in Sodium Chloride 0.9% 100 ML IV ONE (10:00)
[2019-10-06] MEDS ORDERED: Bupivacaine 0.5% 30 ML SDV INJECT ONE ×2 (10:46→11:56)
[2019-10-06] MEDS ORDERED: Lidocaine 1% 30 ML SDV INJECT ONE ×2 (10:46→11:56)
[2019-10-06] MEDS ORDERED: Acetaminophen/oxyCODONE 325-5 MG Tab PO PRN (12:11)
--- NOTE | 2019-10-06 12:15 | PCM.OPNOTE ---
- General Post-Op/Procedure Note Date of Surgery/Procedure: 10/06/19 Operative Procedure(s): right foot 1st metatarsal phalangeal joint scar tissue excision with epifix application Pre Op Diagnosis: right foot painful scar tissue/neuritis Post-Op Diagnosis: estrella Anesthesia Technique: Local, MAC Primary Surgeon: Fay Peterson Anesthesia Provider: Galo Wang EBL in mLs: 5 Complications: none Condition: Good Free Text/Narrative:: Intake & Output 10/05/19 10/06/19 10/06/19 22:59 06:59 14:59 Intake Total 100 Balance 100 Pt tolerated procedure well and was transported to recovery with vascular status intact to right foot. Epifix ([id number]) placed to surgical area. Well padded compression dressing applied.
[2019-10-06 13:59] VITALS: BP 131/97; PULSE 98
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
== END 2019-10-06 14:30 | disposition home or self-care (01) ==
LOC: DL.SDS 07:46
PROVIDERS: ATTEND Podiatrist
DX: M25.571 Pain in right ankle and joints of right foot (principal); L90.5 Scar conditions and fibrosis of skin; G57.91 Unspecified mononeuropathy of right lower limb; J45.909 Unspecified asthma, uncomplicated; I10 Essential (primary) hypertension; M51.36 Other intervertebral disc degeneration, lumbar region; F31.9 Bipolar disorder, unspecified; F41.9 Anxiety disorder, unspecified; F17.210 Nicotine dependence, cigarettes, uncomplicated; Z88.0 Allergy status to penicillin; Z88.1 Allergy status to other antibiotic agents; Z79.899 Other long term (current) drug therapy
CPT/HCPCS: A9270-GY; J1100; J1885; J2001; J2250; J2704; J3010; J3490; J7050; J7120; Q4186

== ENCOUNTER 2020-08-16 15:46 | Emergency (ER) | payer MEDICAID ==
[2020-08-16 16:17] VITALS: BP 129/87; PULSE 117
[2020-08-16 17:31] LABS: ANION GAP 11.5 mEq/L (7-13); CHLORIDE,CL 102 mmol/L (98-107); SODIUM,NA 136 mmol/L (136-145)
--- NOTE | 2020-08-16 17:32 | EDM.PDOC ---
"<Steve Lew - Last Filed: 08/16/20 19:35> ED HPI GENERAL MEDICAL PROBLEM - General Chief Complaint: Abdominal Pain Stated Complaint: SEVERE STOMACH PAIN, CAN'T BREATHE Time Seen by Provider: 08/16/20 17:00 - Related Data Allergies Allergy/AdvReac Type Severity Reaction Status Date / Time metronidazole Allergy Cannot Verified 08/16/20 16:17 Remember Penicillins Allergy Swelling Verified 08/16/20 16:17 Home Meds: Home Meds Multivitamin [Multi-Vitamin Daily] 1 tab PO DAILY 12/07/13 [History] Ibuprofen 400 mg PO ASDIRECTED PRN 06/29/16 [History] Gabapentin [Neurontin] 600 mg PO ASDIRECTED 05/24/19 [History] Losartan [Cozaar] 100 mg PO DAILY 05/26/19 [History] Acetaminophen/oxyCODONE [Percocet 325-5 MG] 1 tab PO Q8H PRN 10/05/19 [History] Etodolac [Lodine] 400 mg PO BID 10/05/19 [History] clonazePAM [Clonazepam] 0.5 mg PO DAILY PRN 10/05/19 [History] Course - Re-Assessments/Exams Free Text/Narrative Re-Assessment/Exam: 08/16/20 19:36 Received a call from [email or web address]. Script was changed to Toradol (10 mg) Departure - Departure Disposition: Home, Self-Care 01 Clinical Impression: Left renal stone - Discharge Information Instructions: Kidney Stones, [id number] Referrals: Lori Gilman NP [Primary Care Provider] - Forms: ED Department Discharge Additional Instructions: Rx: Toradol Rx: Flomax Rx: Percocet 1.) Drink a lot of water to stay hydrated and help pass the stone. 2.) Follow up with your primary care provider in one week. 3.) Return to the emergency room or your primary care provider with any fever, shaking chills, or inability to void. <Jazmin Curtis - Last Filed: 08/17/20 07:46> ED HPI GENERAL MEDICAL PROBLEM - General Source of Information: Reports: Patient, RN, RN Notes Reviewed History Limitations: Reports: No Limitations - History of Present Illness INITIAL COMMENTS - FREE TEXT/NARRATIVE: Patient presents to the ED via personal vehicle with complaints of left flank pain that radiates to the LLQ. The patient states the pain began abruptly at 11am this morning and has progressively worsened over that time. She rates the pain as a 8/10 on a verbal scale and describes is as sharp spasms that radiate to LLQ and left lateral leg. She states she has not taken any analgesics for this problem. She attest to nausea with no vomiting. She denies fever, shaking chills, recent illness, palpitations, dysuria, hematuria, diarrhea, melena, or hematochezia. She states she has never experienced pain like this before. The patient attest to smoking one pack of cigarettes per day. She denies alcohol or recreational drug use. 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 Musculoskeletal 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: Arthritis Neurological 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: Migraines Psychiatric 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: Anxiety, Bipolar, Depression Endocrine/Metabolic 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: None Hematologic 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: B12 Deficiency Immunologic 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: None Oncologic (Cancer) 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: None Dermatologic 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: None - Infectious Disease History Infectious Disease 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: Chicken Pox, Hepatitis C, Herpes - Past Surgical History Head Surgeries/Procedures: Reports: None HEENT Surgical 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: Adenoidectomy, Tonsillectomy Cardiovascular Surgical 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: None Respiratory Surgical 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: None GI Surgical 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: Cholecystectomy Female Surgical 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: Section, Hysterectomy, Oophorectomy, Tubal Ligation, Other (See Below) Other Female Surgeries/Procedures: partial 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 Endocrine Surgical History: Reports: None Neurological Surgical History: Reports: None Musculoskeletal Surgical History: Reports: Arthroscopic Knee, Other (See Below) Other Musculoskeletal Surgeries/Procedures:: left knee surgury. Rigth heel spur Oncologic Surgical History: Reports: None Dermatological Surgical History: Reports: None Social & Family History - Family History Family Medical History: No Pertinent Family History - Tobacco Use Tobacco Use Status *Q: Current Every Day Tobacco User Years of Tobacco use: 23 Packs/Tins Daily: 1 - Caffeine Use Caffeine Use: Reports: None Other Caffeine Use: 2 cups daily - Recreational Drug Use Recreational Drug Use: No - Living Situation & Occupation Living situation: Reports: with Family ED ROS GENERAL - Review of Systems Review Of Systems: Comprehensive ROS is negative, except as noted in HPI. ED EXAM, GI/ABD - Physical Exam Exam: See Below Exam Limited By: No Limitations General Appearance: Alert, WD/WN, Mild Distress (From left flank pain), Obese Eyes: Bilateral: Normal Appearance, EOMI Throat/Mouth: Normal Inspection, Normal Voice, No Airway Compromise Head: Atraumatic, Normocephalic Neck: Normal Inspection, Supple, Non-Tender, Full Range of Motion. No: Lymphad enopathy (L), Lymphadenopathy (R) Respiratory/Chest: No Respiratory Distress, Lungs Clear, Normal Breath Sounds, No Accessory Muscle Use, Chest Non-Tender Cardiovascular: Normal Peripheral Pulses, No Edema, No Gallop, No JVD, No Murmur, No Rub, Tachycardia GI/Abdominal Exam: No Distention, No Mass, Pelvis Stable, Guarding, Tender (To palpation of LLQ and suprapubic region), Abnormal Bowel Sounds (Hypoactive). No: Rigid, Rebound (Female) Exam: Deferred Rectal (Female) Exam: Deferred Back Exam: CVA Tenderness (L). No: CVA Tenderness (R) Extremities: Normal Inspection, Normal Range of Motion, Non-Tender, No Pedal Ed krissy, Normal Capillary Refill Neurological: Alert, Oriented, Normal Cognition, Normal Gait, No Motor/Sensory Deficits Psychiatric: Anxious Skin Exam: Intact, Normal Color, No Rash, Diaphoretic. No: Ecchymosis, Erythema, Mottled, Pallor, Petechiae Course - Vital Signs Last Recorded V/S: Last Vital Signs Temp 97.1 F 08/16/20 16:14 Pulse 117 H 08/16/20 16:14 Resp 20 08/16/20 16:14 BP 129/87 08/16/20 16:14 Pulse Ox 100 08/16/20 16:14 - Orders/Labs/Meds Labs: Laboratory Tests 08/16/20 08/16/20 08/16/20 Range/Units 16:04 16:59 16:59 WBC 8.0 (5.0-10.0) 10^3/uL RBC 4.95 (4.2-5.4) 10^6/uL Hgb 15.6 (12.0-16.0) g/dL Hct 45.8 (37.0-47.0) % MCV 92.5 D (80-100) fL MCH 31.5 (27.0-34.0) pg MCHC 34.1 (33.0-35.0) g/dL Plt Count 203 (150-450) 10^3/uL Neut % (Auto) 66.9 (42.2-75.2) % Lymph % (Auto) 21.8 (20.5-50.1) % [place] % (Auto) 9.7 H (2-8) % Eos % (Auto) 1.4 (1.0-3.0) % Baso % (Auto) 0.2 (0.0-1.0) % Sodium 136 (136-145) mmol/L Potassium 3.5 (3.5-5.1) mmol/L Chloride 102 (98-107) mmol/L Carbon Dioxide 26 (21-32) mmol/L Anion Gap 11.5 (7-13) mEq/L BUN 20 H (7-18) mg/dL Creatinine 0.99 (0.55-1.02) mg/dL Est Cr Clr Drug Dosing 86.12 mL/min Estimated GFR (MDRD) > 60 BUN/Creatinine Ratio 20.2 (No establ ref range) Glucose 105 H (74-99) mg/dL Calcium 9.2 (8.5-10.1) mg/dL Total Bilirubin 0.7 (0.2-1.0) mg/dL AST 19 (15-37) U/L ALT 36 (14-59) U/L Alkaline Phosphatase 84 (46-116) U/L Total Protein 7.8 (6.4-8.2) g/dL Albumin 4.0 (3.4-5.0) g/dL Globulin 3.8 Albumin/Globulin Ratio 1.1 Urine Color Yellow (YELLOW) Urine Appearance Clear (CLEAR) Urine pH 5.5 (5.0-9.0) Ur Specific [place] 1.025 (1.005-1.030) Urine Protein Negative (NEGATIVE) Urine Glucose (UA) Negative (NEGATIVE) Urine Ketones Negative (NEGATIVE) Urine Occult Blood Trace-intact H (NEGATIVE) Urine Nitrite Negative (NEGATIVE) Urine Bilirubin Negative (NEGATIVE) Urine Urobilinogen 0.2 (0.2-1.0) mg/dL Ur Leukocyte Esterase Negative (NEGATIVE) Urine RBC 0-5 /HPF Urine WBC 0-5 (0-5/HPF) /HPF Ur Epithelial Cells Moderate H (NOT SEEN) /HPF Amorphous Sediment Few (NOT SEEN) /HPF Urine Bacteria Moderate H (0-FEW/HPF) /HPF Urine Mucus Many H (NOT SEEN) /LPF Meds: Medications Discontinued Medications Generic Name Dose Route Start Last Admin Trade Name Eric PRN Reason Stop Dose Admin Sodium Chloride 1,000 mls @ 999 mls/hr 08/16/20 17:47 08/16/20 17:57 Normal Saline IV 08/16/20 18:47 999 mls/hr .BOLUS ONE Administration Ketorolac Tromethamine 30 mg 08/16/20 17:33 08/16/20 17:58 Toradol IVPUSH 08/16/20 17:34 Not Given ONETIME ONE Ketorolac Tromethamine 30 mg 08/16/20 17:34 08/16/20 17:57 Toradol IVPUSH 08/16/20 17:35 30 mg ONETIME ONE Administration Tamsulosin HCl 0.4 mg 08/16/20 17:47 08/16/20 17:57 Flomax PO 08/16/20 17:48 0.4 mg ONETIME ONE Administration - Radiology Interpretation Free Text/Narrative:: [facility] Final Radiology Report Call: [phone] assistance Online chat: [email or web address] Name: AIDA GUAJARDO Age: 40Years F Date: 08/16/2020 SSN: -- : [id number] Study: CT ABDOMEN PELVIS WO CONT Requesting Physician: Jazmin Curtis Images: [id number] Addl Studies: Provided Clinical History: Acute left flank pain, radiates to left suprapubic Contrast: Without Contrast Medium: Contrast Amount: Contrast Method: Page 1 of 2 PROCEDURE INFORMATION: Exam: CT Abdomen And Pelvis Without Contrast Exam date and time: 08/16/2020 5:23 PM Age: 40 years old Clinical indication: Other: Left sided pain; Additional info: Acute left flank pain, radiates to left suprapubic TECHNIQUE: Imaging protocol: Computed tomography of the abdomen and pelvis without contrast. Radiation optimization: All CT scans at this facility use at least one of these dose optimization techniques: automated exposure control; mA and/or kV adjustment per patient size (includes targeted exams where dose is matched to clinical indication); or iterative reconstruction. COMPARISON: CT Abdomen Pelvis w Cont 10/31/2017 12:12 AM FINDINGS: Liver: Normal. No mass. Gallbladder and bile ducts: Status post cholecystectomy Pancreas: Normal. No ductal dilation. Spleen: Normal. No splenomegaly. Adrenal glands: Normal. No mass. Kidneys and ureters: There is a small stone noted in the region of the mid to distal left ureter. This stone is a new finding when compared to the prior study dated 10/31/2017 and may represent a partially obstructing mid to distal left ureteral calculus. A repeat study with IV contrast would be helpful to confirm this. Stomach and bowel: There is diffuse colonic wall thickening involving the descending colon, sigmoid colon extending to the rectum. This may represent either mild colitis or nondistended colon. Please correlate clinically. Appendix: No evidence of appendicitis. AIDA GUAJARDO | Final Radiology Report CONFIDENTIALITY STATEMENT This report is intended only for use by the referring physician, and only in accordance with law. If you received this in error, call [phone]. Page 2 of 2 Intraperitoneal space: Unremarkable. No free air. No significant fluid collection. Vasculature: Unremarkable. No abdominal aortic aneurysm. Lymph nodes: Unremarkable. No enlarged lymph nodes. Urinary bladder: Unremarkable as visualized. Reproductive: Unremarkable as visualized. Bones/joints: Unremarkable. No acute fracture. Soft tissues: Unremarkable. IMPRESSION: 1. There is a small stone noted in the region of the mid to distal left ureter. This stone is a new finding when compared to the prior study dated 10/31/2017 and may represent a partially obstructing mid to distal left ureteral calculus. A repeat study with IV contrast would be helpful to confirm this since it is unsure whether it is within the ureter or just adjacent to the ureter. 2. There is diffuse colonic wall thickening involving the descending colon, sigmoid colon extending to the rectum. This may represent either mild colitis or nondistended colon. Please correlate clinically. 3. When compared to the patient's prior CT scan dated 10/31/2017, the previously noted pelvic cysts are no longer seen. Thank you for allowing us to participate in the care of your patient. Dictated and Authenticated by: Trip Brasher MD 08/16/2020 5:40 PM Central Time ([place] & [place]) - Re-Assessments/Exams Free Text/Narrative Re-Assessment/Exam: 08/16/2020 CT remarkable for a renal calculi in the left [id number] ureter. Patient given NS 1L x1, Flomax 0.4mg, and Toradol 30mg IVP x1. Patient states moderate improvement in pain following medications and fluids. Will discharge her with Flomax 0.4mg QD, Toradol 10mg TID, and Percocet 5/325mg q6h PRN. Discussed the importance of staying hydrated with water. Discussed red flag signs and symptoms which would warrant immediate evaluation in the emergency department. Patient verbalized understanding and agreement with the plan of care. Departure - Departure Time of Disposition: 19:01 Condition: Good - Discharge Information *PRESCRIPTION DRUG MONITORING PROGRAM REVIEWED*: Not Applicable *COPY OF PRESCRIPTION DRUG MONITORING REPORT IN PATIENT NATALIE: Not Applicable Sepsis Event Note (ED) - Evaluation Sepsis Screening Result: No Definite Risk"
[2020-08-16] MEDS ORDERED: Ketorolac 30 MG/ML SDV IVPUSH ONE ×2 (17:33→17:34)
--- NOTE | 2020-08-16 17:41 | CT ---
PROCEDURE INFORMATION: Exam: CT Abdomen And Pelvis Without Contrast Exam date and time: 08/16/2020 5:23 PM Age: 40 years old Clinical indication: Other: Left sided pain; Additional info: Acute left flank pain, radiates to left suprapubic TECHNIQUE: Imaging protocol: Computed tomography of the abdomen and pelvis without contrast. Radiation optimization: All CT scans at this facility use at least one of these dose optimization techniques: automated exposure control; mA and/or kV adjustment per patient size (includes targeted exams where dose is matched to clinical indication); or iterative reconstruction. COMPARISON: CT Abdomen Pelvis w Cont 10/31/2017 12:12 AM FINDINGS: Liver: Normal. No mass. Gallbladder and bile ducts: Status post cholecystectomy Pancreas: Normal. No ductal dilation. Spleen: Normal. No splenomegaly. Adrenal glands: Normal. No mass. Kidneys and ureters: There is a small stone noted in the region of the mid to distal left ureter. This stone is a new finding when compared to the prior study dated 10/31/2017 and may represent a partially obstructing mid to distal left ureteral calculus. A repeat study with IV contrast would be helpful to confirm this. Stomach and bowel: There is diffuse colonic wall thickening involving the descending colon, sigmoid colon extending to the rectum. This may represent either mild colitis or nondistended colon. Please correlate clinically. Appendix: No evidence of appendicitis. Intraperitoneal space: Unremarkable. No free air. No significant fluid collection. Vasculature: Unremarkable. No abdominal aortic aneurysm. Lymph nodes: Unremarkable. No enlarged lymph nodes. Urinary bladder: Unremarkable as visualized. Reproductive: Unremarkable as visualized. Bones/joints: Unremarkable. No acute fracture. Soft tissues: Unremarkable. IMPRESSION: 1. There is a small stone noted in the region of the mid to distal left ureter. This stone is a new finding when compared to the prior study dated 10/31/2017 and may represent a partially obstructing mid to distal left ureteral calculus. A repeat study with IV contrast would be helpful to confirm this since it is unsure whether it is within the ureter or just adjacent to the ureter. 2. There is diffuse colonic wall thickening involving the descending colon, sigmoid colon extending to the rectum. This may represent either mild colitis or nondistended colon. Please correlate clinically. 3. When compared to the patient's prior CT scan dated 10/31/2017, the previously noted pelvic cysts are no longer seen.
[2020-08-16] MEDS ORDERED: Tamsulosin 0.4 MG Cap.ER PO ONE (17:47)
[2020-08-16] MEDS ORDERED: Sodium Chloride 0.9% 1,000 ML IV ONE (17:47)
== END 2020-08-16 19:16 | disposition home or self-care (01) ==
LOC: DL.ED 15:46
DX: N20.2 Calculus of kidney with calculus of ureter (principal); I10 Essential (primary) hypertension; J45.909 Unspecified asthma, uncomplicated; F17.210 Nicotine dependence, cigarettes, uncomplicated; Z88.1 Allergy status to other antibiotic agents; Z88.0 Allergy status to penicillin; Z79.899 Other long term (current) drug therapy
CPT/HCPCS: 36415; 74176; 80053; 81001; 85025; 96374; 99284; A9270; J1885; J7030

== ENCOUNTER 2021-09-13 08:25 | Emergency (ER) | payer MEDICAID ==
--- NOTE | 2021-09-13 08:33 | EDM.PDOC ---
ED HPI GENERAL MEDICAL PROBLEM - General Chief Complaint: Skin Complaint Stated Complaint: CYST UNDER LEFT ARM PIT Time Seen by Provider: 09/13/21 08:30 Source of Information: Reports: Patient, Old Records, RN, RN Notes Reviewed History Limitations: Reports: No Limitations - History of Present Illness INITIAL COMMENTS - FREE TEXT/NARRATIVE: Pt presents to ER with c/o possible cyst or abscess in the left axilla x1 week. She thought it might go away on it's own, but it has gotten worse. Denies drainage, fever, or any other complaints. Onset: Gradual Duration: Getting Worse Quality: Reports: Ache, Pressure Severity: Severe Improves with: Reports: None Worsens with: Reports: Movement Associated Symptoms: Reports: No Other Symptoms - Related Data Allergies Allergy/AdvReac Type Severity Reaction Status Date / Time metronidazole Allergy Cannot Verified 08/16/20 16:17 Remember Penicillins Allergy Swelling Verified 08/16/20 16:17 Home Meds: Home Meds Multivitamin [Multi-Vitamin Daily] 1 tab PO DAILY 12/07/13 [History] Ibuprofen 400 mg PO ASDIRECTED PRN 06/29/16 [History] Gabapentin [Neurontin] 600 mg PO ASDIRECTED 05/24/19 [History] Losartan [Cozaar] 100 mg PO DAILY 05/26/19 [History] Acetaminophen/oxyCODONE [Percocet 325-5 MG] 1 tab PO Q8H PRN 10/05/19 [History] Etodolac [Lodine] 400 mg PO BID 10/05/19 [History] clonazePAM [Clonazepam] 0.5 mg PO DAILY PRN 10/05/19 [History] Past Medical History HEENT History: Reports: None Cardiovascular History: Reports: Hypertension Respiratory History: Reports: Asthma Gastrointestinal History: Reports: Hepatitis Genitourinary History: Reports: Renal Calculus, Other (See Below) Other Genitourinary History: HX OF GENITAL HERPES 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: Reports: Polycystic Ovaries, Other 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: 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 Musculoskeletal History: Reports: Arthritis Neurological History: Reports: Migraines Psychiatric History: Reports: Anxiety, Bipolar, Depression Endocrine/Metabolic History: Reports: None Hematologic History: Reports: B12 Deficiency Immunologic History: Reports: None Oncologic (Cancer) History: Reports: None Dermatologic History: Reports: None - Infectious Disease History Infectious Disease History: Reports: Chicken Pox, Hepatitis C, Herpes - Past Surgical History Head Surgeries/Procedures: Reports: None HEENT Surgical History: Reports: Adenoidectomy, Tonsillectomy Cardiovascular Surgical History: Reports: None Respiratory Surgical History: Reports: None GI Surgical History: Reports: Cholecystectomy Female Surgical History: Reports: Section, Hysterectomy, Oophorectomy, Tubal Ligation, Other (See Below) Other Female Surgeries/Procedures: partial 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 Endocrine Surgical History: Reports: None Neurological Surgical History: Reports: None Musculoskeletal Surgical History: Reports: Arthroscopic Knee, Other (See Below) Other Musculoskeletal Surgeries/Procedures:: left knee surgury. Rigth heel spur Oncologic Surgical History: Reports: None Dermatological Surgical History: Reports: None Social & Family History - Family History Family Medical History: No Pertinent Family History - Caffeine Use Caffeine Use: Reports: None Other Caffeine Use: 2 cups daily - Living Situation & Occupation Living situation: Reports: with Family ED ROS GENERAL - Review of Systems Review Of Systems: Comprehensive ROS is negative, except as noted in HPI. ED EXAM, SKIN/RASH Exam: See Below Exam Limited By: No Limitations General Appearance: Alert, WD/WN, No Apparent Distress Throat/Mouth: Normal Voice, No Airway Compromise Head: Atraumatic, Normocephalic Neck: Normal Inspection Respiratory/Chest: No Respiratory Distress Extremities: Normal Inspection, Normal Range of Motion Neurological: Alert, Oriented, No Motor/Sensory Deficits Skin: Warm, Dry, Other (Left axilla has a tender non-erythematous 1cm nodule with excoriated surface, looks like it has been squeezed extensively. It is non- fluctuant, no drainage or increased warmth.) Lymphatic: No Adenopathy Departure - Departure Time of Disposition: 08:46 Disposition: Home, Self-Care 01 Condition: Good Clinical Impression: Furuncle of left axilla - Discharge Information *PRESCRIPTION DRUG MONITORING PROGRAM REVIEWED*: Not Applicable *COPY OF PRESCRIPTION DRUG MONITORING REPORT IN PATIENT NATALIE: Not Applicable Instructions: Skin Abscess, [id number] Forms: ED Department Discharge Additional Instructions: Rx: Clindamycin 300mg Rx: Bactroban (Mupirocin) Ointment Moist hot packs to left arm pit area as needed. Follow up in clinic if not improving in 7 to 10 days.
[2021-09-13 08:43] VITALS: PULSE 85
[2021-09-13 08:45] VITALS: BP 161/132
== END 2021-09-13 08:44 | disposition home or self-care (01) ==
LOC: DL.ED 08:25
DX: L02.422 Furuncle of left axilla (principal); I10 Essential (primary) hypertension; Z88.0 Allergy status to penicillin; Z88.8 Allergy status to other drugs, medicaments and biological substances; Z79.899 Other long term (current) drug therapy
CPT/HCPCS: 99282

== ENCOUNTER 2021-11-12 06:18 | Emergency (ER) | payer MEDICAID ==
[2021-11-12 06:46] VITALS: BP 145/110; PULSE 93
[2021-11-12] MEDS ORDERED: methylPREDNISolone Sodium Succinate 125 MG/2 ML SDV IVPUSH ONE (06:49)
[2021-11-12] MEDS ORDERED: Albuterol/Ipratropium 3.0-0.5 MG/3 ML Neb Soln NEB ONE (06:50)
[2021-11-12 07:22] LABS: CORONAVIRUS COVID-19 NAA NEGATIVE (NEGATIVE)
== END 2021-11-12 07:46 | disposition home or self-care (01) ==
LOC: DL.ED 06:18
DX: J45.41 Moderate persistent asthma with (acute) exacerbation (principal); I10 Essential (primary) hypertension; Z72.0 Tobacco use; Z20.822 Contact with and (suspected) exposure to COVID-19
CPT/HCPCS: 0240U; 71045; 96374; 99284; J2930; J7620-GY

== ENCOUNTER 2023-01-12 13:04 | Emergency (ER) | payer MEDICAID ==
[2023-01-12 14:17] VITALS: BP 181/128; PULSE 88
== END 2023-01-12 15:00 | disposition left against medical advice (07) ==
LOC: DL.ED 13:04
DX: Z53.21 Procedure and treatment not carried out due to patient leaving prior to being seen by health care provider (principal)

== ENCOUNTER 2023-07-07 18:17 | Emergency (ER) | payer MEDICAID ==
[2023-07-07 19:12] VITALS: PULSE 87
[2023-07-07] MEDS ORDERED: Ondansetron 4 MG/2 ML SDV IVPUSH ONE (19:13)
[2023-07-07] MEDS ORDERED: Sodium Chloride 0.9% 10 ML Syringe FLUSH PRN (19:15)
[2023-07-07 19:35] LABS: BASOPHILS PERCENT AUTO 0.3 % (0.0-1.0); EOSINOPHILS PERCENT AUTO 1.1 % (1.0-3.0); HEMOGLOBIN 14.8 g/dL (12.0-16.0); LYMPHOCYTES PERCENT AUTO 21.2 % (20.5-50.1); MEAN CORPUSCULAR HEMOGLOBIN 31.4 pg (27.0-34.0); MEAN CORPUSCULAR HGB CONC 34.4 g/dL (33.0-35.0); MEAN CORPUSCULAR VOLUME 91.3 fL (80-100); NEUTROPHILS PERCENT AUTO 69.4 % (42.2-75.2); PLATELET COUNT,PLT 168 10^3/uL (150-450); RED BLOOD CELL COUNT 4.71 10^6/uL (4.2-5.4); WHITE BLOOD CELL COUNT,WBC 6.5 10^3/uL (5.0-10.0)
[2023-07-07 19:44] LABS: CORONAVIRUS COVID-19 NAA NEGATIVE (NEGATIVE); INFLUENZA A NAA NEGATIVE (NEGATIVE); INFLUENZA B NAA NEGATIVE (NEGATIVE)
[2023-07-07 19:59] LABS: ALANINE AMINOTRANSFERASE,ALT 41 U/L (14-59); ALBUMIN 3.7 g/dL (3.4-5.0); ALKALINE PHOSPHATASE 76 U/L (46-116); ASPARTATE AMNIOTRANSFERASE,AST 26 U/L (15-37); BILIRUBIN TOTAL 0.6 mg/dL (0.2-1.0); BLOOD UREA NITROGEN,BUN 10 mg/dL (7-18); C-REACTIVE PROTEIN 0.07 ng/dL (<=0.30); CALCIUM 8.7 mg/dL (8.5-10.1); CARBON DIOXIDE,CO2 27 mmol/L (21-32); CHLORIDE,CL 103 mmol/L (98-107); CREATININE 0.83 mg/dL (0.55-1.02); ESTIMATED GFR 91 mL/min (>=60); GLUCOSE RANDOM 90 mg/dL (70-99); LACTIC ACID 0.7 mmol/L (0.4-2.0); MAGNESIUM 1.5 mg/dL (1.8-2.4); PROTEIN TOTAL,TP 7.4 g/dL (6.4-8.2); SODIUM,NA 139 mmol/L (136-145)
[2023-07-07] MEDS ORDERED: Losartan 50 MG Tab PO ONE (20:05)
[2023-07-07] MEDS ORDERED: Potassium Chloride 20 MEQ in Premix Bag 1 BAG IV ONE (20:07)
[2023-07-07] MEDS ORDERED: Sodium Chloride 0.9% 500 ML IV SCH (20:15)
[2023-07-07 20:19] LABS: RESPIRATORY SYNCYTIAL VIR NAA NEGATIVE (NEGATIVE)
[2023-07-07] MEDS ORDERED: Ketorolac 30 MG/ML SDV IVPUSH ONE (20:51)
[2023-07-07] MEDS ORDERED: cloNIDine 0.1 MG Tab PO ONE (22:16)
[2023-07-07 22:22] VITALS: BP 174/118
[2023-07-07] MEDS ORDERED: Take Home: Ondansetron 4 MG Tab.DIS, 5 Tab Pack PO ONE (23:12)
[2023-07-07] MEDS ORDERED: Magnesium Oxide 400 MG Tab ONE (23:19)
[2023-07-08] MEDS ORDERED: Magnesium Oxide 400 MG Tab PO ONE (23:12)
== END 2023-07-07 23:27 | disposition home or self-care (01) ==
LOC: DL.ED 18:17
DX: B34.9 Viral infection, unspecified (principal); I10 Essential (primary) hypertension; F17.210 Nicotine dependence, cigarettes, uncomplicated; Z20.822 Contact with and (suspected) exposure to COVID-19; Z88.1 Allergy status to other antibiotic agents; Z88.0 Allergy status to penicillin; Z79.899 Other long term (current) drug therapy
CPT/HCPCS: 0241U; 36415; 71045; 80053; 83605; 83735; 84145; 84484; 85025; 86140; 87040; 93005; 96365; 96366; 96375; 99284; A9270; J1885; J2405; J3480; J7040; Q0162; J3490

== ENCOUNTER 2023-07-08 16:39 | Emergency (ER) | payer MEDICAID ==
[2023-07-08] MEDS ORDERED: Sodium Chloride 0.9% 1,000 ML IV ONE (17:31)
[2023-07-08] MEDS ORDERED: Promethazine 25 MG/ML SDV IM ONE (17:31)
[2023-07-08] MEDS ORDERED: Sodium Chloride 0.9% 10 ML Syringe FLUSH PRN (17:31)
[2023-07-08] MEDS ORDERED: hydrALAZINE 20 MG/ML SDV IVPUSH ONE (17:37)
[2023-07-08] MEDS ORDERED: Ketorolac 30 MG/ML SDV IVPUSH ONE (17:37)
[2023-07-08 17:47] LABS: BASOPHILS PERCENT AUTO 0.2 % (0.0-1.0); EOSINOPHILS PERCENT AUTO 0.9 % (1.0-3.0); HEMATOCRIT 42.2 % (37.0-47.0); HEMOGLOBIN 14.3 g/dL (12.0-16.0); LYMPHOCYTES PERCENT AUTO 18.3 % (20.5-50.1); MEAN CORPUSCULAR HEMOGLOBIN 31.2 pg (27.0-34.0); MEAN CORPUSCULAR HGB CONC 33.9 g/dL (33.0-35.0); MEAN CORPUSCULAR VOLUME 92.1 fL (80-100); MONOCYTES PERCENT AUTO 7.2 % (2-8); NEUTROPHILS PERCENT AUTO 73.4 % (42.2-75.2); PLATELET COUNT,PLT 168 10^3/uL (150-450); RED BLOOD CELL COUNT 4.58 10^6/uL (4.2-5.4); WHITE BLOOD CELL COUNT,WBC 5.6 10^3/uL (5.0-10.0)
[2023-07-08 18:05] LABS: A/G RATIO 0.9; ALANINE AMINOTRANSFERASE,ALT 39 U/L (14-59); ALBUMIN 3.6 g/dL (3.4-5.0); ALKALINE PHOSPHATASE 76 U/L (46-116); ANION GAP 9.4 mEq/L (7-13); ASPARTATE AMNIOTRANSFERASE,AST 30 U/L (15-37); BILIRUBIN TOTAL 0.7 mg/dL (0.2-1.0); BLOOD UREA NITROGEN,BUN 9 mg/dL (7-18); BUN/CREATININE RATIO 10.8 (No establ ref range); CALCIUM 8.8 mg/dL (8.5-10.1); CARBON DIOXIDE,CO2 29 mmol/L (21-32); CHLORIDE,CL 103 mmol/L (98-107); CREATININE 0.83 mg/dL (0.55-1.02); GLUCOSE RANDOM 104 mg/dL (70-99); LIPASE 32 U/L (16-77); MAGNESIUM 1.9 mg/dL (1.8-2.4); POTASSIUM,K 3.4 mmol/L (3.5-5.1); PROTEIN TOTAL,TP 7.4 g/dL (6.4-8.2); SODIUM,NA 138 mmol/L (136-145)
[2023-07-08 18:06] LABS: C-REACTIVE PROTEIN < 0.05 ng/dL (<=0.30); ESTIMATED GFR 91 mL/min (>=60); LACTIC ACID 0.3 mmol/L (0.4-2.0)
[2023-07-08 18:14] VITALS: PULSE 82
[2023-07-08 18:40] LABS: CORONAVIRUS COVID-19 NAA NEGATIVE (NEGATIVE); INFLUENZA A NAA NEGATIVE (NEGATIVE); INFLUENZA B NAA NEGATIVE (NEGATIVE); RESPIRATORY SYNCYTIAL VIR NAA NEGATIVE (NEGATIVE)
[2023-07-08] MEDS ORDERED: diphenhydrAMINE 50 MG/ML SDV IVPUSH ONE (19:12)
[2023-07-08 19:13] LABS: APPEARANCE,URINE CLEAR (CLEAR); BILIRUBIN,URINE NEGATIVE (NEGATIVE); COLOR,URINE YELLOW (YELLOW); GLUCOSE,URINE NEGATIVE (NEGATIVE); KETONES,URINE 15 (NEGATIVE); LEUKOCYTE ESTERASE,URINE NEGATIVE (NEGATIVE); NITRITE,URINE NEGATIVE (NEGATIVE); OCCULT BLOOD,URINE NEGATIVE (NEGATIVE); PROTEIN,URINE NEGATIVE (NEGATIVE); UROBILINOGEN,URINE 0.2 mg/dL (0.2-1.0)
[2023-07-08] MEDS ORDERED: cloNIDine 0.1 MG Tab PO ONE (19:36)
[2023-07-08] MEDS ORDERED: Butorphanol 2 MG/ML SDV IVPUSH ONE (19:45)
[2023-07-08 19:47] VITALS: BP 186/127
[2023-07-08] MEDS ORDERED: Iopamidol 612 MG/ML 100 ML Bottle IVPUSH ONE (19:53)
[2023-07-08] MEDS ORDERED: Iopamidol 755 Mg/ML 100 ML Bottle IVPUSH ONE (20:05)
[2023-07-08] MEDS ORDERED: methylPREDNISolone Sodium Succinate 125 MG/2 ML SDV IVPUSH ONE (20:55)
[2023-07-08] MEDS ORDERED: Metoclopramide 10 MG/2 ML SDV IVPUSH ONE (20:55)
[2023-07-08] MEDS ORDERED: Diazepam 5 MG Tab PO ONE (23:22)
== END 2023-07-08 23:40 | disposition home or self-care (01) ==
LOC: DL.ED 16:39
DX: I10 Essential (primary) hypertension (principal); F17.210 Nicotine dependence, cigarettes, uncomplicated; Z20.822 Contact with and (suspected) exposure to COVID-19; Z88.1 Allergy status to other antibiotic agents; Z88.0 Allergy status to penicillin; Z79.899 Other long term (current) drug therapy
CPT/HCPCS: 0241U; 36415; 70450; 71275; 74174; 80053; 81003; 81025; 83605; 83690; 83735; 84145; 84484; 85025; 86140; 87081; 87430; 93005; 96361; 96372; 96374; 96375; 99284-25; A9270-GY; J0360; J0595; J1200; J1885; J2550; J2765; J2930; J3360; J3490; J7030; Q9967

== ENCOUNTER 2023-10-08 14:26 | Emergency (ER) | payer OTHER, MEDICAID ==
[2023-10-08] MEDS ORDERED: Orphenadrine 60 MG/2 ML Inj IM ONE (14:54)
[2023-10-08 14:57] VITALS: BP 171/128; PULSE 79
[2023-10-08] MEDS: Ketorolac 30 MG/ML SDV IM ONE ×2 (15:05→15:12)
== END 2023-10-08 15:21 | disposition home or self-care (01) ==
LOC: DL.ED 14:26
DX: S40.011A Contusion of right shoulder, initial encounter (principal); S30.1XXA Contusion of abdominal wall, initial encounter; S20.229A Contusion of unspecified back wall of thorax, initial encounter; S70.01XA Contusion of right hip, initial encounter; I10 Essential (primary) hypertension; Z79.899 Other long term (current) drug therapy; Z88.0 Allergy status to penicillin; Z88.8 Allergy status to other drugs, medicaments and biological substances; W18.30XA Fall on same level, unspecified, initial encounter; Y93.02 Activity, running; Y92.59 Other trade areas as the place of occurrence of the external cause; Y99.0 Civilian activity done for income or pay
CPT/HCPCS: 96372; 99283; J1885; J2360

== ENCOUNTER 2024-05-06 05:41 | Emergency (ER) | payer MEDICAID, OTHER ==
[2024-05-06 06:19] LABS: BASOPHILS PERCENT AUTO 0.3 % (0.0-1.0); EOSINOPHILS PERCENT AUTO 1.3 % (1.0-3.0); HEMATOCRIT 42.9 % (37.0-47.0); HEMOGLOBIN 14.6 g/dL (12.0-16.0); LYMPHOCYTES PERCENT AUTO 16.6 % (20.5-50.1); MEAN CORPUSCULAR HEMOGLOBIN 32.5 pg (27.0-34.0); MEAN CORPUSCULAR VOLUME 95.5 fL (80-100); MONOCYTES PERCENT AUTO 7.3 % (2-8); NEUTROPHILS PERCENT AUTO 74.5 % (42.2-75.2); PLATELET COUNT,PLT 154 10^3/uL (150-450); RED BLOOD CELL COUNT 4.49 10^6/uL (4.2-5.4); WHITE BLOOD CELL COUNT,WBC 6.8 10^3/uL (5.0-10.0)
[2024-05-06] MEDS: Albuterol/Ipratropium 3.0-0.5 MG/3 ML Neb Soln NEB ONE ×2 (06:20→06:50)
[2024-05-06] MEDS: Losartan 50 MG Tab PO ONE (06:30)
[2024-05-06 06:45] LABS: ALBUMIN 3.6 g/dL (3.4-5.0); ANION GAP 12.6 mEq/L (7-13); BILIRUBIN TOTAL 0.6 mg/dL (0.2-1.0); BUN/CREATININE RATIO 11.5 (No establ ref range); CALCIUM 8.7 mg/dL (8.5-10.1); CREATININE 0.87 mg/dL (0.55-1.02); EST CRCL DRUG DOSING (CG) 94.15 mL/min; MAGNESIUM 1.7 mg/dL (1.8-2.4); POTASSIUM,K 3.6 mmol/L (3.5-5.1); PROTEIN TOTAL,TP 7.2 g/dL (6.4-8.2)
[2024-05-06 06:47] VITALS: BP 183/117; PULSE 82
[2024-05-06 06:54] LABS: INR 0.9 (0.9-1.2); PROTHROMBIN TIME 9.7 SEC (9.0-12.0)
== END 2024-05-06 07:32 | disposition home or self-care (01) ==
LOC: DL.ED 05:41
DX: J45.909 Unspecified asthma, uncomplicated (principal); I10 Essential (primary) hypertension; Z90.49 Acquired absence of other specified parts of digestive tract; Z79.899 Other long term (current) drug therapy; Z88.6 Allergy status to analgesic agent; Z88.1 Allergy status to other antibiotic agents; Z88.0 Allergy status to penicillin
CPT/HCPCS: 36415; 71046; 80053; 83735; 84484; 85025; 85610; 87635; 87804; 93005; 99285; A9270; 93010; 99283; J7620-GY; U0002

== ENCOUNTER 2024-10-09 07:53 | Emergency (ER) | payer OTHER, MEDICAID ==
[2024-10-09] MEDS: Hydrochlorothiazide 25 MG Tab PO ONE (08:21)
[2024-10-09] MEDS: Losartan 50 MG Tab PO ONE (08:22)
[2024-10-09 09:48] VITALS: BP 204/133; PULSE 74
== END 2024-10-09 09:45 | disposition home or self-care (01) ==
LOC: DL.ED 07:53
DX: S50.01XA Contusion of right elbow, initial encounter (principal); I10 Essential (primary) hypertension; F17.210 Nicotine dependence, cigarettes, uncomplicated; Z86.16 Personal history of COVID-19; Z90.49 Acquired absence of other specified parts of digestive tract; Z88.5 Allergy status to narcotic agent; Z88.0 Allergy status to penicillin; Z88.8 Allergy status to other drugs, medicaments and biological substances; Z79.899 Other long term (current) drug therapy; W00.0XXA Fall on same level due to ice and snow, initial encounter; Y93.89 Activity, other specified
CPT/HCPCS: 73080-RT; 73090-RT; 99283; A9270-GY

== ENCOUNTER 2024-12-12 14:47 | Emergency (ER) | payer OTHER, MEDICAID ==
[2024-12-12 15:20] VITALS: PULSE 82
== END 2024-12-12 16:23 | disposition home or self-care (01) ==
LOC: DL.ED 14:47
DX: J44.1 Chronic obstructive pulmonary disease with (acute) exacerbation (principal); I10 Essential (primary) hypertension; F17.210 Nicotine dependence, cigarettes, uncomplicated; M19.90 Unspecified osteoarthritis, unspecified site; Z88.0 Allergy status to penicillin; Z88.8 Allergy status to other drugs, medicaments and biological substances; Z79.899 Other long term (current) drug therapy; Z79.1 Long term (current) use of non-steroidal anti-inflammatories (NSAID); Z90.710 Acquired absence of both cervix and uterus
CPT/HCPCS: 87428-QW; 99284

== ENCOUNTER 2025-02-14 18:03 | Emergency (ER) | payer OTHER, MEDICAID ==
[2025-02-14 18:42] LABS: BASOPHILS PERCENT AUTO 0.1 % (0.0-1.0); EOSINOPHILS PERCENT AUTO 1.1 % (1.0-3.0); HEMATOCRIT 46.6 % (37.0-47.0); HEMOGLOBIN 15.9 g/dL (12.0-16.0); LYMPHOCYTES PERCENT AUTO 19.3 % (20.5-50.1); MEAN CORPUSCULAR HEMOGLOBIN 32.3 pg (27.0-34.0); MEAN CORPUSCULAR HGB CONC 34.1 g/dL (33.0-35.0); MEAN CORPUSCULAR VOLUME 94.5 fL (80-100); MONOCYTES PERCENT AUTO 6.5 % (2-8); PLATELET COUNT,PLT 131 10^3/uL (150-450); RED BLOOD CELL COUNT 4.93 10^6/uL (4.2-5.4); WHITE BLOOD CELL COUNT,WBC 8.9 10^3/uL (5.0-10.0)
[2025-02-14 18:59] LABS: A/G RATIO 1.1; ALBUMIN 4.3 g/dL (3.4-5.0); ANION GAP 11.9 mEq/L (7-13); BILIRUBIN TOTAL 1.3 mg/dL (0.2-1.0); BUN/CREATININE RATIO 7.2 (No establ ref range); CALCIUM 9.4 mg/dL (8.5-10.1); CREATININE 1.53 mg/dL (0.55-1.02); EST CRCL DRUG DOSING (CG) 53.54 mL/min; POTASSIUM,K 2.9 mmol/L (3.5-5.1); PROTEIN TOTAL,TP 8.3 g/dL (6.4-8.2)
[2025-02-14] MEDS: Potassium Chloride 10 MEQ Tab.ER PO ONE (19:23)
[2025-02-14] MEDS: Sodium Chloride 0.9% 1,000 ML IV SCH (19:23)
[2025-02-14] MEDS: Magnesium Sulfate 2 GM/50 mL 2 GM in Premix Bag 1 BAG IV ONE (20:08)
[2025-02-14] MEDS: Sodium Chloride 0.9% 1,000 ML IV ONE (20:09)
[2025-02-14 20:21] LABS: APPEARANCE,URINE SLIGHTLY CLOUDY (CLEAR); BILIRUBIN,URINE SMALL (NEGATIVE); COLOR,URINE YELLOW (YELLOW); GLUCOSE,URINE NEGATIVE (NEGATIVE); KETONES,URINE NEGATIVE (NEGATIVE); LEUKOCYTE ESTERASE,URINE NEGATIVE (NEGATIVE); NITRITE,URINE NEGATIVE (NEGATIVE); OCCULT BLOOD,URINE TRACE-INTACT (NEGATIVE); PROTEIN,URINE 100 (NEGATIVE); UROBILINOGEN,URINE 0.2 mg/dL (0.2-1.0)
[2025-02-14 20:37] LABS: RBC,URINE 0-5 /HPF (0-5); WBC,URINE 0-5 /HPF (0-5/HPF)
[2025-02-14 20:38] LABS: BACTERIA,URINE MODERATE /HPF (0-FEW/HPF); EPITHELIAL CELLS,URINE MODERATE /HPF (NOT SEEN); MUCUS,URINE RARE /LPF (NOT SEEN)
[2025-02-14 20:52] VITALS: BP 126/83; PULSE 81
== END 2025-02-14 21:12 | disposition still patient (30) ==
LOC: DL.ED 18:03
DX: E86.9 Volume depletion, unspecified (principal); R63.8 Other symptoms and signs concerning food and fluid intake; I10 Essential (primary) hypertension; F17.200 Nicotine dependence, unspecified, uncomplicated; Z88.0 Allergy status to penicillin; Z88.5 Allergy status to narcotic agent; Z88.8 Allergy status to other drugs, medicaments and biological substances; Z79.899 Other long term (current) drug therapy; Z90.49 Acquired absence of other specified parts of digestive tract; Z90.710 Acquired absence of both cervix and uterus
CPT/HCPCS: 36415; 80053; 81001; 81025; 83735; 85025; 96361; 96365; 99284; A9270; J3475; J7030; 99283

== ENCOUNTER 2025-08-19 15:00 | Emergency (ER) | payer OTHER, MEDICAID ==
[2025-08-19] MEDS: Ondansetron 4 MG Tab.DIS PO ONE (15:41)
[2025-08-19] MEDS: Ketorolac 30 MG/ML SDV IM ONE (15:41)
[2025-08-19 17:34] LABS: APPEARANCE,URINE CLEAR (CLEAR); GLUCOSE,URINE NEGATIVE (NEGATIVE); OCCULT BLOOD,URINE NEGATIVE (NEGATIVE)
[2025-08-19] MEDS: Take Home: Cyclobenzaprine 10 MG Tab, 4 Tab Pack PO ONE (18:01)
[2025-08-19 18:07] VITALS: BP 170/118; PULSE 69
== END 2025-08-19 18:03 | disposition home or self-care (01) ==
LOC: DL.ED 15:00
DX: M54.50 Low back pain, unspecified (principal); I10 Essential (primary) hypertension; F17.200 Nicotine dependence, unspecified, uncomplicated; Z88.0 Allergy status to penicillin; Z79.899 Other long term (current) drug therapy
CPT/HCPCS: 81003; 96372; 99284; A9270; J1171; J1885; 99283